=== PATIENT | male | born 1975 | race Hispanic/Latino ===

== ENCOUNTER 2017-09-04 20:40 | Inpatient (IN) | payer OTHER ==
[~2017-09-04] VITALS: Ht 170.2 cm; Wt 99.8 kg
[~2017-09-04 20:40] MED LIST: BENICAR HCT 401 EAC1 PO; PREDNISONE10 M2 PO; TESSALON PERLE100 M1 PO; VENTOLIN HFA18 GM INH; ZITHROMAX500 M2 PO
--- NOTE | 2017-09-04 20:47 | ED DYSPNEA/ASTHMA COMPLAINT ---
History of Present Illness General Chief Complaint: Wheezing/Asthma Stated Complaint: " BIBA PER EMS ASTHMA ATTACK" Source: patient, old records, EMS Exam Limitations: clinical condition Vital Signs & Intake/Output Vital Signs & Intake/Output Vital Signs Date Time Temp Pulse Resp B/P B/P Pulse O2 O2 Flow FiO2 Mean Ox Delivery Rate 09/05 0108 95 Nasal 2.0L Cannula 09/05 0050 98.8 103 20 154/90 96 Nasal 3.0L Cannula 09/04 2157 100.1 09/04 2155 100.1 09/04 2119 101.0 09/04 2108 101.0 120 20 154/88 96 Nasal 4.0L Cannula 09/04 2100 123 20 96 Nasal 4.0L Cannula 09/04 2049 97 CPAP 100% 09/04 2048 100.1 126 30 186/102 97 CPAP 100% ED Intake and Output 09/05 0000 09/04 1200 Intake Total Output Total 600 Balance -600 Output, Urine 600 Patient 220 lb Weight Weight Reported by Patient Measurement Method Allergies Coded Allergies: NO KNOWN ALLERGIES (06/21/17) Triage Nurses Notes Reviewed? yes Onset: Gradual Duration: worse persistent since (1 day) Timing: recent history Severity: severe Activities at Onset: none Prior Episodes/Possible Cause: occasional episodes Modifying Factors: Improves With: rest. Worsens With: movement. HPI: Patient is a 42-year-old male with history of asthma and hypertension presenting to the emergency department complaining of increasing shortness of breath, wheezing progressively getting worse 1 day. Patient does report upper respiratory congestion over the past several days. Has been using her home inhalers with some relief up until today. Denies fevers or chills. No chest pain. Positive shortness of breath. Shortness of breath is worse with talking and exertion. History of similar symptoms with asthma exacerbation in the past. (Fina CHAMBERS,Noemi) Reconcile Medications Albuterol Sulfate (Proair Hfa) 90 MCG HFA.AER.AD 2 PUF INH Q4-6 PRN PRN asthma (Reported) Olmesartan/Hydrochlorothiazide (Benicar Hct 40-25 MG Tablet) 40 MG-25 MG TABLET 1 TAB PO DAILY HEART (Reported) (Becki ZARAGOZA,Delroy) Past History Travel History Traveled to [place] past 21 day No Medical History Any Pertinent Medical History? see below for history Cardiovascular: hypertension Respiratory: asthma Surgical History Surgical History: non-contributory Psychosocial History What is your primary language Nepalese Family History Hx Contributory? No (Noemi Weir) Review of Systems Review of Systems Constitutional: Reports: see HPI. Comments Review of systems: See HPI, All other systems negative. Constitutional, no chills fever or weight loss HEENT: No visual changes no sore throat Cardiovascular: No chest pain ,palpitation , orthopnea or ankle swelling Skin, no jaundice no rashes Respiratory: No sputum or hemoptysis GI: No nausea no vomiting : No dysuria No hematuria Muscle skeletal: no back pain, no neck pain, Neurologic: No numbness no confusion no headache Psych: No stress anxiety or depression,. Heme/endocrine: No bruising no bleeding no polyuria or polydipsia Immunology: No splenectomy or history of AIDS (Noemi Weir) Physical Exam Physical Exam General Appearance: moderate distress Respiratory: wheezing Comments: Well-developed well-nourished person in moderate distress HEENT:. Pupils equally round and reactive to light and accommodation. Nose is atraumatic. External auditory canal and Tympanic membranes clear. Pharynx normal. No swelling or edema. Dry oral mucosa. Neck: Supple, no lymphadenopathy Cardiovascular: Tachycardic rate and rhythms no murmurs rubs or gallops, normal JVP Respiratory: Chest nontender. Increased work of breathing. Moderate respiratory distress.diffuse wheezing both inspiratory and expiratory to auscultation bilaterally Extremity: No edema, no calf tenderness to palpation, normal and equal pulses. Neuro: Alert oriented x3 Skin: No appreciable rash on exposed skin, skin is warm and dry. Psych: Mood and affect is normal, memory and judgment is normal. Core Measures ACS in differential dx? Yes CVA/TIA Diagnosis No Sepsis Present: No Sepsis Focused Exam Completed? No (Noemi Weir) Progress Differential Diagnosis: asthma, AMI, bronchitis, COPD, musculoskeletal pain, pneumonia, pneumothorax Plan of Care: Orders Procedure Date/time Status Regular Diet 09/05 B Active CBC WITHOUT DIFFERENTIAL 09/05 599 Active BASIC ELECTROLYTES PLUS BUN&CR 09/05 599 Active Vital Signs 09/05 144 Active Teach/Educate 09/05 144 Active Pain Treatment and Response 09/05 144 Active Nutritional Intake, Monitor 09/05 144 Active Isolation 01/21 0145 Active Intake & Output 09/05 0145 Active Patient Care Conference 09/05 0145 Active Activity/Ambulation 09/05 0145 Active LOWER RESPIRATORY CULTURE 09/05 0021 Active TRC EVALUATION (GEN) 09/05 UNK Active Isolation 09/05 UNK Active Pathway - chart 09/04 2348 Active STREP PNEUMO URINARY ANTIGEN 09/04 2347 Active LEGIONELLA URINARY ANTIGEN 09/04 2347 Active Pathway - chart 09/04 2346 Active Patient Data 09/04 2339 Active OXYGEN SETUP (GEN) 09/04 2331 Active Saline Lock 09/04 2331 Active Admit to inpatient 09/04 2331 Active Vital Signs 09/04 2331 Active Activity/Ambulation 09/04 2331 Active Code Status 09/04 2331 Active RAPID VIRAL INFLUENZA A 09/04 2114 Complete ARTERIAL BLOOD GAS (GEN) 09/04 2050 Complete Telemetry/Splicer Helper 09/04 204 Active TROPONIN LEVEL 09/04 204 Complete MAGNESIUM 09/04 204 Complete COMPREHENSIVE METABOLIC PANEL 09/04 204 Complete CBC WITHOUT DIFFERENTIAL 09/04 2045 Complete EKG 09/04 2046 Active Intake & Output 09/04 2044 Active TRC EVALUATION (GEN) 09/04 UNK Active PEAK FLOW MEASUREMENT (GEN) 09/04 UNK Active OXYGEN SETUP (GEN) 09/04 UNK Active House Staff 09/04 UNK Active VTE Mechanical Prophylaxis 09/04 UNK Active Current Medications Sig/Lorena Start time Last Medication Dose Stop Time Status Admin Enoxaparin Sodium 40 MG DAILY 09/05 1000 AC (Lovenox) Methylprednisolone 40 MG Q12 09/05 1000 AC (Solumedrol) Acetaminophen 1,000 MG Q6 09/05 0600 AC (Ofirmev) Albuterol Sulfate 2 PUF Q4-6 PRN PRN 09/05 0200 CANr (Ventolin) Sodium Chloride 1,000 ML Q13H 09/05 0145 UNVr (Normal Saline 0.9%) Oseltamivir Phosphate 30 MG BID 09/05 0129 UNVr (Tamiflu) 09/09 0128 Albuterol Sulfate 3 ML Q4H PRN 09/05 0115 UNVr 09/05 (Proventil) 0107 Non-Formulary 0 SEE ADMIN CRITERIA 09/05 0030 UNVr Medication (NON FORMULARY) Acetaminophen 650 MG Q6P PRN 09/04 2345 AC (Tylenol) Laboratory Tests 09/04/172214: pH 7.41, pCO2 44, pO2 70 L, HCO3 27, ABG O2 Sat (Measured) 92.0 L, Carboxyhemoglobin 1.2 L, O2 Concentration % 4L, O2 Delivery Method N/C, Phlebotomy Draw Site RIGHT RADIAL 09/04/172057: Anion Gap 15, Estimated GFR > 60, BUN/Creatinine Ratio 11.3, Glucose 149 H, Calcium 9.1, Magnesium 2.7 H, Total Bilirubin 0.4, AST 27, ALT 48, Alkaline Phosphatase 66, Troponin I < 0.01, Total Protein 7.4, Albumin 4.4, Globulin 3.0, Albumin/Globulin Ratio 1.5, CBC w Diff NO MAN DIFF REQ, RBC 4.90, MCV 83.4, MCH 26.4 L, RDW 15.0 H, MPV 8.0, Gran % 69.7, Lymphocytes % 14.6 L, Monocytes % 11.3 H, Eosinophils % 4.2, Basophils % 0.2, Absolute Granulocytes 6.1, Absolute Lymphocytes 1.3, Absolute Monocytes 1.0 H, Absolute Eosinophils 0.4, Absolute Basophils 0, PUBS MCHC 31.7 L Microbiology 09/05 002 LOWER RESP: Respiratory Culture - COLB 09/05 20 LOWER RESP: Gram Stain - COLB 09/04 2346 URINE ROUT: Legionella Antigen - ORD 09/04 2346 URINE ROUT: Streptococcus pneumoniae Antigen (M - ORD 09/04 2118 NASOPHARYN: Influenza Virus A & B Rapid Smear - COMP Patient was given IV Solu-Medrol, magnesium and epinephrine en route to the emergency department. Patient still has diffuse wheezing, oxygen saturation remains in the low to mid 90s on room air with increased work of breathing. Placed on nasal cannula for several 4. We will assess ABG, blood work, EKG and chest x-ray. Patient is febrile. We will obtain flu swab as well. 09/05/2017 12:06:12 AM patient was given terbutaline as well, still has ambulatory oxygen saturation of 89% on room air with increased work of breathing. Patient will be admitted for asthma exacerbation and hypoxia. Needing continuous nasal cannula oxygen. Diagnostic Imaging: Viewed by Me: Radiology Read. Discussed w/RAD: Radiology Read. Radiology Impression: PATIENT: DAVID HESTER PRESENT AGE: 42 PATIENT ACCOUNT NO: [id number] : 74 LOCATION: [facility] ORDERING PHYSICIAN: Noemi CHAMBERS SERVICE DATE: 09/04/17 EXAM TYPE: RAD - XRY-PORTABLE CHEST XRAY EXAMINATION: XR PORTABLE CHEST CLINICAL INFORMATION: Shortness of breath, wheeze COMPARISON: None TECHNIQUE: Portable AP view of the chest was obtained. FINDINGS: Hypoventilatory exam. This causes mild crowding of the pulmonary bronchovascular markings. No focal pulmonary consolidation is seen. No pleural effusion or pneumothorax. The cardiomediastinal silhouette is normal. IMPRESSION: Crowding of the pulmonary bronchovascular markings due to low lung volumes in this exam. No definite pulmonary opacity is seen. DICTATED BY: Willie Sands MD DATE/TIME DICTATED:09/04/172138 AQUATIC SCIENTIST: SINAN DATE/TIME TRANSCRIBED:09/04/172138 CONFIDENTIAL, DO NOT COPY WITHOUT APPROPRIATE AUTHORIZATION. <Electronically signed in Other Vendor System> SIGNED BY: Willie Sands MD 09/04/172143 Initial ED EKG: sinus tachy 120 bpm, non-specific t wav abnormalities. (Noemi Weir) Departure Departure Time of Disposition: 2326 Disposition: STILL A PATIENT Condition: Stable Clinical Impression Primary Impression: Asthma exacerbation Qualifiers: Asthma severity: moderate Asthma persistence: persistent Qualified Code: J45.41 - Moderate persistent asthma with (acute) exacerbation Secondary Impressions: Hypoxia Referrals: Quinten Kessler DO (PCP/Family) Departure Forms: Customer Survey General Discharge Information Admission Note Spoke With: Ellis Smith MD Documentation of Exam: Documentation of any treatments & extenuating circumstances including Concerns Regarding Discharge (functional status, medication knowledge or non-compliance, living conditions, etc.) that warrant an admission rather than observation: Patient requiring continuous oxygen which is new for this patient, pulmonology consultation, IV steroids, serial DuoNeb treatments, oxygen titration, discharge at this time would BE medically harmful. Serial blood gases. (Noemi Weir) PA/[employer] SPLICER Co-Sign Statement Statement: ED Attending supervision documentation- x I saw and evaluated the patient. I have also reviewed all the pertinent lab results and diagnostic results. I agree with the findings and the plan of care as documented in the PA's/FIBER [employer] SPLICER's documentation. Severe asthma exacerbation with increased work of breathing hypoxia [] I have reviewed the ED Record and agree with the PA's/FIBER OPTIC SPLICER's documentation. [] Additions or exceptions (if any) to the PAs/FIBER OPTIC SPLICER's note and plan are summarized below: [] (Becki ZARAGOZA,Delroy) Critical Care Note Critical Care Note Critical Care Time: 30-74 min (Fina CHAMBERS,Noemi)
[2017-09-04 21:10] LABS: ABSOLUTE BASOPHIL COUNT 0 /CUMM (0.0-0.2); ABSOLUTE EOSINOPHIL COUNT 0.4 /CUMM (0.0-0.7); ABSOLUTE GRANULOCYTE CT 6.1 /CUMM (1.4-6.5); ABSOLUTE LYMPH COUNT 1.3 /CUMM (1.2-3.4); BASOPHIL % 0.2 % (0.0-2.0); EOSINOPHIL % 4.2 % (0-5); GRANULOCYTE % 69.7 % (42.2-75.2); HEMATOCRIT 40.9 % (42-52); MEAN CORPUSCULAR HGB 26.4 PG (27.0-31.0); MEAN CORPUSCULAR HGB CONC 31.7 G/DL (33.0-37.0); MEAN CORPUSCULAR VOLUME 83.4 FL (80.0-94.0); PLATELET COUNT 204 /CUMM (130-400); WHITE BLOOD CELL COUNT 8.8 /CUMM (4.8-10.8)
--- NOTE | 2017-09-04 21:44 | RADIOLOGY REPORT ---
EXAMINATION: XR PORTABLE CHEST CLINICAL INFORMATION: Shortness of breath, wheeze COMPARISON: None TECHNIQUE: Portable AP view of the chest was obtained. FINDINGS: Hypoventilatory exam. This causes mild crowding of the pulmonary bronchovascular markings. No focal pulmonary consolidation is seen. No pleural effusion or pneumothorax. The cardiomediastinal silhouette is normal. IMPRESSION: Crowding of the pulmonary bronchovascular markings due to low lung volumes in this exam. No definite pulmonary opacity is seen.
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
[2017-09-05] VITALS (10 sets, daily range): BP systolic 120–184; BP diastolic 60–122
[2017-09-05] MEDS ORDERED: PROAIR HFA8.5 GM INH (01:54)
--- NOTE | 2017-09-05 03:06 | Admission Certification ---
Admission Certification Certification Statement - As attending physician, I certify that at the time of - admission, based on clinical presentation, severity of - symptoms, need for further diagnostic testing and - therapeutic interventions, and risk of adverse outcomes - without in-hospital treatment, in my clinical assessment, - this patient requires an acute hospital stay for a minimum - of two nights or longer. I have also considered psychsocial - factors such as support system, advanced age, financial - issues, cognitive issues, and failed out-patient treatments, - past re-admission history, safety of patient, and lack of - compliance as applicable. Specific rationale supporting this admission is: Asthma exacerbation
--- NOTE | 2017-09-05 10:04 | Event Note ---
Event Note Event Note: Dr. Hong psychiatrist called and she reviewed the home meds of the patient over the phone, she recommended to add CIWA score, Ativan 1 mg Q 4 PRN for CIAWA> 4 , to watch for Xanax withdrawal. We'll give Ativan , she said most likely he will be seen tomorrow
--- NOTE | 2017-09-05 10:13 | Incdntl Nt Psy ---
See Addendum Incidental Note Notation: Psychiatry consulted for patient presenting with asthma exacerbation in the context of history of PTSD, anxiety, depression. Consult question: His PTSD or anxiety contributing to asthma exacerbation and medication recommendations? Dr Miller for attending Dr Smith requested consult. Spoke with medical team promotions intern "Cristobal" pager [phone]. Case and chart briefly reviewed. It does not appear the patient is on any medications for anxiety or depression other than Xanax, which has been discontinued. Patient is currently being stabilized for asthma exacerbation but still is having breathing difficulty. A&P: 42-year-old male with history of PTSD, anxiety, depression presenting to ED with inpatient admission for asthma exacerbation. At this time would monitor for benzodiazepine withdrawal as asthma exacerbation is being stabilized, this may be contributing to anxiety/panic and shortness of breath. It does not appear the patient is on any other medications for psychiatric issues at this time. Would not start during acute exacerbation. -hold xanax as you are doing -vs/CIWA q4h with ativan 2 mg po/iv for CIWA >8 -for CIWA >15, consider ativan 1 mg IV/hr -would not start additional psych meds until full psych eval and medical stabilization -ativan 1 mg po q6h prn acute anxiety -plan discussed with promotions intern -Psych C/L team to see pt on Wednesday, please call with concerns
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
--- NOTE | 2017-09-05 13:58 | PN- Att Addend ---
Attending Addendum Attending Brief Note Patient seen/examined bedside. Patient c/o shortness of breath , b/l wheezing on bipap. Patient seen by pulmonary and recs followed. Patient received solumedrol this am. Accessory muscle use+. General Appearance: alert, awake, shortness of breath at rest, follows commands Head: atraumatic, normal appearance Eyes: Bilateral: normal appearance, PERRL. Neck: supple Respiratory: no respiratory distress, decreased breath sounds, wheezing+ diffuse. Cardiovascular: regular rate/rhythm Gastrointestinal: normal bowel sounds, soft, non-tender Extremities: no edema Skin: intact, normal color, warm/dry ASSESSMENT/PLAN Patient admitted to inpatient medical services for acute respiratroy failure with asthma exacerbation insetting of close contact to flu precipatating his flare up. Patient is on NIPPV for his respiratroy support. Pulmonary consulted and follow recommnedations. Patient uptitrate solumedrol from 40 q 12 to 40 q 6 with frequent bronchodilator therapy. Keep low threshold for intubation , candidate for elective intubation in case his mental status changes. CLOSELY FOLLOW and call me if any changes. Admission Lab Results I reviewed the following labs: Laboratory Tests 09/04 Blood Gas pH (7.35 - 7.45 PH) 7.41 pCO2 (35 - 45 TORR) 44 pO2 (80 - 100 TORR) 70 L HCO3 (21 - 28 MEQ/L) 27 ABG O2 Sat (Measured) (>96.0 %) 92.0 L Carboxyhemoglobin (1.5 - 5.0 %) 1.2 L O2 Concentration % 4L O2 Delivery Method N/C Chemistry Sodium (137 - 145 mmol/L) 142 Potassium (3.5 - 5.1 mmol/L) 3.8 Chloride (98 - 107 mmol/L) 97 L Carbon Dioxide (22 - 30 mmol/L) 30 Anion Gap (5 - 16) 15 BUN (9 - 20 mg/dL) 9 Creatinine (0.7 - 1.2 mg/dL) 0.8 Estimated GFR (>60 ml/min) > 60 BUN/Creatinine Ratio (7 - 25 %) 11.3 Glucose (65 - 99 mg/dL) 149 H Calcium (8.4 - 10.2 mg/dL) 9.1 Magnesium (1.6 - 2.3 mg/dL) 2.7 H Total Bilirubin (0.2 - 1.3 mg/dL) 0.4 AST (17 - 59 U/L) 27 ALT (21 - 72 U/L) 48 Alkaline Phosphatase (< 127 U/L) 66 Troponin I (<0.11 ng/ml) < 0.01 Total Protein (6.3 - 8.2 g/dL) 7.4 Albumin (3.5 - 5.0 g/dL) 4.4 Globulin (1.9 - 4.2 gm/dL) 3.0 Albumin/Globulin Ratio (1.1 - 2.2 %) 1.5 Hematology CBC w Diff NO MAN DIFF REQ WBC (4.8 - 10.8 /CUMM) 8.8 RBC (4.70 - 6.10 /CUMM) 4.90 Hgb (14.0 - 18.0 G/DL) 13.0 L Hct (42 - 52 %) 40.9 L MCV (80.0 - 94.0 FL) 83.4 MCH (27.0 - 31.0 PG) 26.4 L RDW (11.5 - 14.5 %) 15.0 H Plt Count (130 - 400 /CUMM) 204 MPV (7.4 - 10.4 FL) 8.0 Gran % (42.2 - 75.2 %) 69.7 Lymphocytes % (20.5 - 51.1 %) 14.6 L Monocytes % (1.7 - 9.3 %) 11.3 H Eosinophils % (0 - 5 %) 4.2 Basophils % (0.0 - 2.0 %) 0.2 Absolute Granulocytes (1.4 - 6.5 /CUMM) 6.1 Absolute Lymphocytes (1.2 - 3.4 /CUMM) 1.3 Absolute Monocytes (0.10 - 0.60 /CUMM) 1.0 H Absolute Eosinophils (0.0 - 0.7 /CUMM) 0.4 Absolute Basophils (0.0 - 0.2 /CUMM) 0 PUBS MCHC (33.0 - 37.0 G/DL) 31.7 L Miscellaneous Phlebotomy Draw Site RIGHT RADIAL
[2017-09-05 15:50] LABS: ABSOLUTE BASOPHIL COUNT 0 /CUMM (0.0-0.2); ABSOLUTE EOSINOPHIL COUNT 0 /CUMM (0.0-0.7); ABSOLUTE LYMPH COUNT 0.5 /CUMM (1.2-3.4); ABSOLUTE MONOCYTE COUNT 0.2 /CUMM (0.10-0.60); BASOPHIL % 0 % (0.0-2.0); EOSINOPHIL % 0 % (0-5); GRANULOCYTE % 94.9 % (42.2-75.2); MEAN CORPUSCULAR HGB 26.9 PG (27.0-31.0); MEAN CORPUSCULAR HGB CONC 32.6 G/DL (33.0-37.0); MEAN CORPUSCULAR VOLUME 82.4 FL (80.0-94.0); MEAN PLATELET VOLUME 8.7 FL (7.4-10.4); PLATELET COUNT 201 /CUMM (130-400); RBC DISTRIBUTION WIDTH 15.4 % (11.5-14.5); RED BLOOD CELL CT 5.09 /CUMM (4.70-6.10)
[2017-09-05 15:57] LABS: WHITE BLOOD CELL COUNT 13.7 /CUMM (4.8-10.8)
--- NOTE | 2017-09-05 23:16 | Event Note ---
Event Note Event Note: Patient reports taking 100 mg of methadone from [facility], says he recently started because of pain medication abuse - We will Confirm the dose in the a.m. and start pt on methadone -Patient wants to [facility] to know that he is being treated for asthma exacerbation and cannot make it for his appointments
[2017-09-06] VITALS (12 sets, daily range): BP systolic 110–124; BP diastolic 58–86
--- NOTE | 2017-09-06 07:51 | PN- Housestaff ---
Subjective Follow-up For: Asthma exacerbation Subjective: Patient was seen and examined this morning. He was sitting comfortably in bed without significant discomfort. He admits that he is doing way better than before. He remained afebrile and hemodynamically stable. He is able to speak in full sentences. He is requesting for his methadone which we would conform and will provide Review of Systems Constitutional: Denies: diaphoresis, fever, malaise. Cardiovascular: Denies: chest pain, edema. Respiratory: Reports: short of breath, wheezing. Gastrointestinal: Denies: constipation, melena. Genitourinary: Denies: frequency, hematuria. Objective Last 24 Hrs of Vital Signs/I&O Vital Signs Date Time Temp Pulse Resp B/P B/P Pulse O2 O2 Flow FiO2 Mean Ox Delivery Rate 09/06 1115 98.2 09/06 0951 97.0 86 20 112/60 09/06 0938 96 Nasal 1.0L Cannula 09/06 0648 97.0 86 20 112/60 96 BIPAP 09/06 0610 89 98 09/06 0503 92 98 09/06 0249 99 BIPAP 30% 09/06 0225 93 99 09/06 0200 97.0 91 20 120/84 99 BIPAP 09/06 0000 BIPAP 40% 09/05 2221 98 99 09/05 2200 97.3 96 20 120/60 98 BIPAP 09/05 1836 98 BIPAP 40% 09/05 1831 98 98 09/05 1600 BIPAP 40% 09/05 1519 130/70 09/05 1435 97.5 97 20 95 BIPAP Intake & Output 09/06 1600 09/06 0800 09/06 0000 Intake Total 350 400 Output Total Balance 350 400 Intake, IV 250 300 Intake, Oral 100 100 Physical Exam General Appearance: Alert, Oriented X3, Cooperative, No Acute Distress Cardiovascular: Regular Rate, Normal S1, Normal S2, No Murmurs Lungs: bl wheezing Abdomen: Soft, No Tenderness Current Medications: Current Medications Sig/Lorena Start time Last Medication Dose Route Stop Time Status Admin Acetaminophen 1,000 MG Q6 09/05 0600 AC 09/06 IV 1115 Acetaminophen 650 MG Q6P PRN 09/04 2345 AC 09/05 PO 0228 Al Hydroxide/Mg 30 ML Q4-6 PRN PRN 09/06 1045 AC Hydroxide PO Albuterol Sulfate 3 ML Q4 09/05 1400 AC 09/06 INH 1305 Albuterol Sulfate 2 PUF Q4-6 PRN PRN 09/05 0645 AC 09/05 INH 0944 Azithromycin 500 MG DAILY@09/06 AC Dextrose/Water 250 ML IV Azithromycin 500 MG DAILY@09/05 1900 DC 09/05 Sodium Chloride 250 ML IV 202 Enoxaparin Sodium 40 MG DAILY 09/05 1000 AC 09/06 SC 0950 Guaifenesin 600 MG Q12 09/05 1000 AC 09/06 PO 0951 Hydrochlorothiazide 25 MG DAILY 09/05 1000 AC 09/06 PO 0951 Ipratropium [place] 2.5 ML Q4 09/05 1400 AC 09/06 INH 1305 Lorazepam 1 MG Q4P PRN 09/05 1015 AC IV Losartan Potassium 100 MG DAILY 09/05 1000 AC 09/06 PO 0951 Melatonin 5 MG AT BEDTIME 09/06 2199 AC PO Melatonin 5 MG ONCE ONE 09/05 2114 DC 09/05 PO 09/05 Methadone HCl 100 MG DAILY 09/06 1015 AC 09/06 PO 1115 Methylprednisolone 40 MG Q8 09/06 1400 AC IV Methylprednisolone 40 MG Q6 09/05 1200 DC 09/06 IV 0611 Montelukast Sodium 10 MG AT BEDTIME 09/05 2200 AC 09/05 PO 2127 Oseltamivir Phosphate 75 MG BID 09/05 0156 AC 09/06 PO 09/09 0155 0950 Oxymetazoline HCl 2 SPRAY BID 09/05 0400 AC 09/06 SHAKA 0953 Last 24 Hrs of Lab/Nate Results Last 24 Hrs of Labs/Mics: Laboratory Tests 09/06/17 0815: Anion Gap 15, Estimated GFR > 60, BUN/Creatinine Ratio 25.6 H, Hemoglobin A1c 7.1 H, Phosphorus 4.3, Magnesium 2.0, Triglycerides 98, Cholesterol 163, LDL Cholesterol, Calc 97, HDL Cholesterol 47, Cholesterol/HDL Ratio 4, CBC w Diff MAN DIFF ORDERED, RBC 5.02, MCV 82.8, MCH 27.0, RDW 15.3 H, MPV 8.8, Gran % 94.3 H, Lymphocytes % 3.0 L, Monocytes % 2.7, Eosinophils % 0, Basophils % 0, Absolute Granulocytes 18.9 H, Segmented Neutrophils 85 H, Band Neutrophils 9 H, Absolute Lymphocytes 0.6 L, Lymphocytes 1 L, Monocytes 5, Absolute Monocytes 0.5, Absolute Eosinophils 0, Absolute Basophils 0, Platelet Estimate VERIFIED BY SMEAR, Anisocytosis 1+, PUBS MCHC 32.6 L, RPR Titer/FTA Pending 09/05/17 1455: Anion Gap 13, Estimated GFR > 60, BUN/Creatinine Ratio 16.3, Vitamin B12 386, TSH 0.258 L, Free T4 1.01, CBC w Diff MAN DIFF ORDERED, RBC 5.09, MCV 82.4, MCH 26.9 L, RDW 15.4 H, MPV 8.7, Gran % 94.9 H, Lymphocytes % 3.5 L, Monocytes % 1.6 L, Eosinophils % 0, Basophils % 0, Absolute Granulocytes 13.0 H, Segmented Neutrophils 84 H, Band Neutrophils 12 H, Absolute Lymphocytes 0.5 L, Lymphocytes 3 L, Monocytes 1 L, Absolute Monocytes 0.2, Absolute Eosinophils 0 , Absolute Basophils 0, Platelet Estimate ADEQUATE, Normochromic RBCs VERIFIED, PUBS MCHC 32.6 L Microbiology 09/06 120 LOWER RESP: Respiratory Culture - RECD 09/06 1208 LOWER RESP: Gram Stain - RECD Assessment/Plan Assessment: Patient is 42-year-old gentleman with past medical history significant for asthma, PTSD and hypertension came in with chief complaint of worsening shortness of breath most likely due to asthma axis are patient and admitted on general medical floor. During his hospital stay we will take care for the following problems. Problem #1 asthma exacerbation We will continue azithromycin for its anti-inflammatory benefits. We will decrease his IV Solu-Medrol from 40 every 6 240 daily 8 today. We will continue total respiratory care and nebulizations. We would continue supplemental oxygen to keep oxygen saturation more than 90%. Pulmonology is on board and we will follow their recommendations. Problem #2 influenza exposure on Tamiflu. Patient admits that her girlfriend is recently been treated for flu and was started on Tamiflu during his hospital stay and we will continue to complete a course of 5 days. Problem #3 history of PTSD and excite the Patient is on when necessary Ativan for anxiety. Psych is on board. We will continue his methadone for his chronic pain. I called [facility] and confirmed his dose of 100 mg methadone daily. Problem #4 history of hypertension We will continue all his home medications. Problem #5 elevated hemoglobin A1c Patient was never been diagnosed with diabetes as outpatient. Patient will be instructed to follow-up with his PCP to start on oral hypoglycemics if needed. Problem List: 1. Asthma exacerbation Pain Ratin Pain Location: Not applicable Pain Goal: Remain pain free Pain Plan: Tylenol Tomorrow's Labs & Rationales: Cbc and basic electrolyte panel
--- NOTE | 2017-09-06 08:29 | PN- Pulmonary ---
Subjective HPI/Critical Care Issues: Patient is comfortable on BiPAP. Oxygen saturations improved. Quick flu was negative Objective Current Medications: Current Medications Sig/Lorena Start time Last Medication Dose Route Stop Time Status Admin Acetaminophen 1,000 MG Q6 09/05 0600 AC 09/06 IV 0610 Acetaminophen 650 MG Q6P PRN 09/04 2345 AC 09/05 PO 0228 Albuterol Sulfate 3 ML Q4 09/05 1400 AC 09/06 INH 0552 Albuterol Sulfate 2 PUF Q4-6 PRN PRN 09/05 0645 AC 09/05 INH 0944 Albuterol Sulfate 3 ML Q4H PRN 09/05 0115 DC 09/05 INH 0704 Azithromycin 500 MG DAILY@1900 09/05 1900 AC 09/05 Sodium Chloride 250 ML IV 202 Enoxaparin Sodium 40 MG DAILY 09/05 1000 AC 09/05 SC 0949 Guaifenesin 600 MG Q12 09/05 1000 AC 09/05 PO 2127 Hydrochlorothiazide 25 MG DAILY 09/05 1000 AC 09/05 PO 0946 Influenza Virus 0.5 ML ONCE ONE 09/05 1000 DC Vaccine IM 09/05 1001 Ipratropium [place] 2.5 ML Q4 09/05 1400 AC 09/06 INH 0552 Lorazepam 1 MG Q4P PRN 09/05 1015 AC IV Losartan Potassium 100 MG DAILY 09/05 1000 AC 09/05 PO 0350 Melatonin 5 MG ONCE ONE 09/05 2115 DC 09/05 PO 09/05 Methylprednisolone 40 MG Q6 09/05 1200 AC 09/06 IV 0611 Methylprednisolone 40 MG Q12 09/05 1000 DC 09/05 IV 0946 Montelukast Sodium 10 MG AT BEDTIME 09/05 2200 AC 09/05 PO 2127 Ondansetron HCl 4 MG ONCE ONE 09/05 1015 DC 09/05 IV 09/05 1016 1025 Oseltamivir Phosphate 75 MG BID 09/05 0156 AC 09/05 PO 09/09 0155 212 Oxymetazoline HCl 2 SPRAY BID 09/05 0400 AC 09/05 SHAKA 2021 Vital Signs & I&O Last 24 Hrs of Vitals and I&O: Vital Signs Date Time Temp Pulse Resp B/P B/P Pulse O2 O2 Flow FiO2 Mean Ox Delivery Rate 09/06 0648 97.0 86 20 112/60 96 BIPAP 09/06 0610 89 98 01/22 0503 92 98 09/06 0249 99 BIPAP 30% 09/06 0225 93 99 09/06 0200 97.0 91 20 120/84 99 BIPAP 09/06 0000 BIPAP 40% 09/05 2221 98 99 09/05 2200 97.3 96 20 120/60 98 BIPAP 09/05 1836 98 BIPAP 40% 09/05 1831 98 98 09/05 1600 BIPAP 40% 09/05 1519 130/70 09/05 1435 97.5 97 20 95 BIPAP 09/05 1354 92 98 09/05 1130 96 16 150/98 98 BIPAP 40% 09/05 1039 BIPAP 40% 09/05 1032 95 98 Intake & Output 09/06 1600 09/06 0800 09/06 0000 Intake Total 350 400 Output Total Balance 350 400 Intake, IV 250 300 Intake, Oral 100 100 Oxygen saturation 30% 9698% exam his chest shows scattered bilateral wheezing and rhonchi cardiac exam shows regular S1 and S2 without murmurs Impression/Plan Impression/Plan Impression/Plan: 42-year-old with acute hypoxic respiratory failure and acute exacerbation of asthma is slowly improving Recommendations: Trial off BiPAP Taper FiO2 saturations allow continue IV Solu-Medrol and Zithromax. Repeat PA and lateral chest x-ray
[2017-09-06 10:29] LABS: ABSOLUTE BASOPHIL COUNT 0 /CUMM (0.0-0.2); ABSOLUTE EOSINOPHIL COUNT 0 /CUMM (0.0-0.7); ABSOLUTE GRANULOCYTE CT 18.9 /CUMM (1.4-6.5); ABSOLUTE LYMPH COUNT 0.6 /CUMM (1.2-3.4); ABSOLUTE MONOCYTE COUNT 0.5 /CUMM (0.10-0.60); BASOPHIL % 0 % (0.0-2.0); EOSINOPHIL % 0 % (0-5); GRANULOCYTE % 94.3 % (42.2-75.2); HEMATOCRIT 41.6 % (42-52); MEAN CORPUSCULAR HGB CONC 32.6 G/DL (33.0-37.0); MEAN CORPUSCULAR VOLUME 82.8 FL (80.0-94.0); MEAN PLATELET VOLUME 8.8 FL (7.4-10.4); PLATELET COUNT 216 /CUMM (130-400); RBC DISTRIBUTION WIDTH 15.3 % (11.5-14.5); RED BLOOD CELL CT 5.02 /CUMM (4.70-6.10)
--- NOTE | 2017-09-06 11:36 | PN- Att Addend ---
Attending Addendum Attending Brief Note Patient seen and examined, claims that overall his breathing has improved some. He is having difficulty sleeping at night and wants to sleep. Also complaining of some heartburn. Vital Signs Date Time Temp Pulse Resp B/P B/P Pulse O2 O2 Flow FiO2 Mean Ox Delivery Rate 09/06 1115 98.2 09/06 0951 97.0 86 20 112/60 09/06 0938 96 Nasal 1.0L Cannula 09/06 0648 97.0 86 20 112/60 96 BIPAP 09/06 0610 89 98 09/06 0503 92 98 09/06 0249 99 BIPAP 30% 09/06 0225 93 99 09/06 0200 97.0 91 20 120/84 99 BIPAP 09/06 0000 BIPAP 40% 09/05 2221 98 99 09/05 2200 97.3 96 20 120/60 98 BIPAP 09/05 1836 98 BIPAP 40% 09/05 1831 98 98 09/05 1600 BIPAP 40% 09/05 1519 130/70 09/05 1435 97.5 97 20 95 BIPAP 09/05 1354 92 98 on exam; aox3,nad. cv; s1,s2, rrr resp; mild scattered wheeze b/l abd; soft, nt,bs+ ext; no edema. Laboratory Tests 09/06 09/05 0815 1455 Chemistry Sodium (137 - 145 mmol/L) 137 137 Potassium (3.5 - 5.1 mmol/L) 4.4 4.3 Chloride (98 - 107 mmol/L) 94 L 96 L Carbon Dioxide (22 - 30 mmol/L) 28 29 Anion Gap (5 - 16) 15 13 BUN (9 - 20 mg/dL) 23 H 13 Creatinine (0.7 - 1.2 mg/dL) 0.9 0.8 Estimated GFR (>60 ml/min) > 60 > 60 BUN/Creatinine Ratio (7 - 25 %) 25.6 H 16.3 Hemoglobin A1c (4.2 - 5.8 %) 7.1 H Phosphorus (2.5 - 4.5 mg/dL) 4.3 Magnesium (1.6 - 2.3 mg/dL) 2.0 Triglycerides (<150 mg/dL) 98 Cholesterol (< 200 MG/DL) 163 LDL Cholesterol, Calc (65 - 129 mg/dL) 97 HDL Cholesterol (40 - 60 mg/dL) 47 Cholesterol/HDL Ratio (0.00 - 4.88 %) 4 Vitamin B12 (239 - 931 pg/mL) 386 TSH (0.270 - 4.200 uIU/mL) 0.258 L Free T4 (0.64 - 1.79 ng/dL) 1.01 Hematology CBC w Diff Pending MAN DIFF ORDERED WBC (4.8 - 10.8 /CUMM) Pending 13.7 H RBC (4.70 - 6.10 /CUMM) Pending 5.09 Hgb (14.0 - 18.0 G/DL) Pending 13.7 L Hct (42 - 52 %) Pending 42.0 MCV (80.0 - 94.0 FL) Pending 82.4 MCH (27.0 - 31.0 PG) Pending 26.9 L RDW (11.5 - 14.5 %) Pending 15.4 H Plt Count (130 - 400 /CUMM) Pending 201 MPV (7.4 - 10.4 FL) Pending 8.7 Gran % (42.2 - 75.2 %) Pending 94.9 H Lymphocytes % (20.5 - 51.1 %) Pending 3.5 L Monocytes % (1.7 - 9.3 %) Pending 1.6 L Eosinophils % (0 - 5 %) Pending 0 Basophils % (0.0 - 2.0 %) Pending 0 Absolute Granulocytes (1.4 - 6.5 /CUMM) Pending 13.0 H Segmented Neutrophils (42.2 - 75.2 %) 84 H Band Neutrophils (0.0 - 5.0 %) 12 H Absolute Lymphocytes (1.2 - 3.4 /CUMM) Pending 0.5 L Lymphocytes (20.5 - 51.1 %) 3 L Monocytes (1.7 - 9.3 %) 1 L Absolute Monocytes (0.10 - 0.60 /CUMM) Pending 0.2 Absolute Eosinophils (0.0 - 0.7 /CUMM) Pending 0 Absolute Basophils (0.0 - 0.2 /CUMM) Pending 0 Platelet Estimate (ADEQUATE) ADEQUATE Normochromic RBCs VERIFIED PUBS MCHC (33.0 - 37.0 G/DL) Pending 32.6 L Serology RPR Titer/FTA Pending A/P; 42-year-old male with past history significant for hypertension, asthma, anxiety, depression admitted with acute hypoxic respiratory failure secondary to acute asthma exacerbation. Patient did have a close contact to influenza positive patient who is his girlfriend. Will taper the steroids to every 8 hours today. Continue azithromycin as well as Tamiflu. Continue TRC nebs. Will add melatonin. Will add Maalox for his heartburn. Continue the rest of his medications. Patient was encouraged to ambulate. We confirmed the dose of his methadone through [facility], will resume it. DVT px; Lovenox.
--- NOTE | 2017-09-06 15:27 | RADIOLOGY REPORT ---
EXAMINATION: CR CHEST CLINICAL INFORMATION: Shortness of breath. Pulmonary infiltrate. COMPARISON: Chest x-ray dated 09/04/2017. TECHNIQUE: 2 views of the chest were obtained. FINDINGS: The cardiomediastinal silhouette is within normal limits in size. Low lung volumes are seen. No focal consolidation, effusion or pneumothorax is seen. Bony structures are unremarkable. IMPRESSION: No acute cardiopulmonary process seen.
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
[2017-09-07] VITALS (10 sets, daily range): BP systolic 110–120; BP diastolic 64–80
--- NOTE | 2017-09-07 08:13 | PN- Housestaff ---
Sara Sethi 09/07/17 0812: Subjective Follow-up For: Asthma exacerbation Subjective: The patient was seen and examined this morning. He was lying comfortably in bed and his respiratory status is better. He is able to talk in full sentences. He remained afebrile and hemodynamically stable. Patient is requesting to be discharged home today. Review of Systems Constitutional: Denies: diaphoresis, fever, malaise. Cardiovascular: Denies: chest pain, edema. Respiratory: Reports: short of breath, wheezing. Gastrointestinal: Denies: bloating, diarrhea. Genitourinary: Denies: discharge, hematuria. Musculoskeletal: Denies: gout, joint swelling. Objective Last 24 Hrs of Vital Signs/I&O Vital Signs Date Time Temp Pulse Resp B/P B/P Pulse O2 O2 Flow FiO2 Mean Ox Delivery Rate 09/07 1400 98.4 75 20 118/64 09/07 1356 98.6 70 20 110/70 97 Room Air 09/07 1200 98.4 75 20 118/64 09/07 1000 98.4 75 20 118/64 09/07 0850 98.4 75 18 118/64 09/07 0830 95 Room Air 09/07 0800 98.4 75 20 118/64 09/07 0800 93 09/07 0618 98.4 75 18 118/64 92 Room Air 09/07 0600 98.4 75 18 118/64 09/07 0400 98.1 84 20 120/80 09/07 0314 93 Room Air 09/07 0200 98.1 84 20 120/80 09/07 0000 BIPAP 09/07 0000 98.1 84 20 120/80 09/06 2336 98.1 84 20 120/80 94 Nasal Cannula 09/06 2200 98.3 84 20 120/80 09/06 2000 98.0 82 18 120/80 09/06 1800 98.2 86 18 122/86 09/06 1800 97.0 82 16 110/62 Intake & Output 09/07 1600 09/07 0800 09/07 0000 Intake Total 350 800 600 Output Total Balance 350 800 600 Intake, IV 200 200 Intake, Oral 350 600 400 Physical Exam General Appearance: Alert, Oriented X3, Cooperative, No Acute Distress Cardiovascular: Regular Rate, Normal S1, Normal S2, No Murmurs Lungs: bilateral expiratory wheezing Abdomen: Soft, No Tenderness, No Hepatospenomegaly Neurological: Normal Speech, Strength at 5/5 X4 Ext, Normal Tone Extremities: No Clubbing, No Cyanosis, No Edema Current Medications: Current Medications Sig/Lorena Start time Last Medication Dose Route Stop Time Status Admin Acetaminophen 1,000 MG Q6 09/05 0600 DCD 09/07 IV 0513 Acetaminophen 650 MG Q6P PRN 09/04 2345 DCD 09/05 PO 0228 Al Hydroxide/Mg 30 ML Q4-6 PRN PRN 09/06 1045 DCD Hydroxide PO Albuterol Sulfate 3 ML Q4 09/05 1400 DCD 09/07 INH 1205 Albuterol Sulfate 2 PUF Q4-6 PRN PRN 09/05 0645 DCD 09/05 INH 0944 Azithromycin 500 MG DAILY@1900 09/06 1900 DCD 09/06 Dextrose/Water 250 ML IV 2045 Enoxaparin Sodium 40 MG DAILY 09/05 1000 DCD 09/07 SC 0850 Gabapentin 100 MG Q8 09/06 2200 DCD 09/07 PO 1405 Guaifenesin 600 MG Q12 09/05 1000 DCD 09/07 PO 0849 Hydrochlorothiazide 25 MG DAILY 09/05 1000 DCD 09/07 PO 0851 Ipratropium [place] 2.5 ML Q4 09/05 1400 DCD 09/07 INH 1206 Lorazepam 1 MG Q4P PRN 09/05 1015 DCD 09/06 IV 2223 Losartan Potassium 100 MG DAILY 09/05 1000 DCD 09/07 PO 0850 Melatonin 5 MG AT BEDTIME 09/06 2200 DCD 09/06 PO 2224 Methadone HCl 100 MG DAILY 09/06 1015 DCD 09/07 PO 0850 Methylprednisolone 40 MG Q8 09/06 1400 DCD 09/07 IV 1405 Montelukast Sodium 10 MG AT BEDTIME 09/05 2200 DCD 09/06 PO 2224 Oseltamivir Phosphate 75 MG BID 09/05 0156 DCD 09/07 PO 09/09 0155 0850 Oxymetazoline HCl 2 SPRAY BID 09/05 0400 DCD 09/07 SHAKA 0852 Trazodone HCl 50 MG AT BEDTIME NEED.. 09/06 2030 DCD 09/06 PO 2225 Last 24 Hrs of Lab/Nate Results Last 24 Hrs of Labs/Mics: Laboratory Tests 09/07/17 0800: Anion Gap 13, Estimated GFR > 60, BUN/Creatinine Ratio 30.0 H, CBC w Diff NO MAN DIFF REQ, RBC 4.76, MCV 83.1, MCH 27.0, RDW 15.2 H, MPV 8.7, Gran % 92.7 H , Lymphocytes % 4.4 L, Monocytes % 2.9, Eosinophils % 0, Basophils % 0, Absolute Granulocytes 17.1 H, Absolute Lymphocytes 0.8 L, Absolute Monocytes 0.5, Absolute Eosinophils 0, Absolute Basophils 0, PUBS MCHC 32.5 L Assessment/Plan Assessment: Patient is 42-year-old gentleman with past medical history significant for asthma, PTSD and hypertension came in with chief complaint of worsening shortness of breath most likely due to asthma axis are patient and admitted on general medical floor. During his hospital stay we will take care for the following problems. Problem #1 asthma exacerbation We will continue azithromycin for its anti-inflammatory benefits. Patient is stable to go home today as he saturating fine on room air. We will send him home on oral azithromycin and tapering course of prednisone and inhalers. 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 He was started on Singulair during this admission and we will discharge him on the same. Problem #2 influenza exposure on Tamiflu. Patient admits that her girlfriend is recently been treated for flu and was started on Tamiflu during his hospital stay and we will continue to complete a course of 5 days. Problem #3 history of PTSD and excite the Patient is on when necessary Ativan for anxiety. Psych is on board. We will continue his methadone for his chronic pain. I called [facility] and confirmed his dose of 100 mg methadone daily. Patient was evaluated by psych during this admission and Davion leon from psychiatry would contact him tomorrow to schedule for outpatient psych intake. Problem #4 history of hypertension We will continue all his home medications. Problem #5 elevated hemoglobin A1c Patient was never been diagnosed with diabetes as outpatient. Patient will be instructed to follow-up with his PCP to start on oral hypoglycemics if needed. Problem List: 1. Asthma exacerbation Pain Ratin Pain Location: Not applicable Pain Goal: Remain pain free Pain Plan: Tylenol Tomorrow's Labs & Rationales: None Brooke Yip MD 09/07/17 1106: Attending MD Review Statement Attending Statement Attending MD Statement: examined this patient, discuss w/resident/PA/MEDICAL RECEPTION, agreed w/resident/PA/MEDICAL RECEPTION, reviewed EMR data (avail), discussed with nursing, discussed with case mgmt, reviewed images, amended to note Attending Assessment/Plan: Patient seen and examined, overall doing better. Breathing has improved. Not requiring any oxygen. White blood cell count has improved compared to yesterday. vss. on exam; aox3, nad. cv; s1,s2, rrr resp; much better, now clear b/l abd; soft, nt, bs+ ext; no edema Laboratory Tests 09/07 0800 Chemistry Sodium (137 - 145 mmol/L) 135 L Potassium (3.5 - 5.1 mmol/L) 4.6 Chloride (98 - 107 mmol/L) 95 L Carbon Dioxide (22 - 30 mmol/L) 27 Anion Gap (5 - 16) 13 BUN (9 - 20 mg/dL) 27 H Creatinine (0.7 - 1.2 mg/dL) 0.9 Estimated GFR (>60 ml/min) > 60 BUN/Creatinine Ratio (7 - 25 %) 30.0 H Hematology CBC w Diff NO MAN DIFF REQ WBC (4.8 - 10.8 /CUMM) 18.4 H RBC (4.70 - 6.10 /CUMM) 4.76 Hgb (14.0 - 18.0 G/DL) 12.9 L Hct (42 - 52 %) 39.6 L MCV (80.0 - 94.0 FL) 83.1 MCH (27.0 - 31.0 PG) 27.0 RDW (11.5 - 14.5 %) 15.2 H Plt Count (130 - 400 /CUMM) 204 MPV (7.4 - 10.4 FL) 8.7 Gran % (42.2 - 75.2 %) 92.7 H Lymphocytes % (20.5 - 51.1 %) 4.4 L Monocytes % (1.7 - 9.3 %) 2.9 Eosinophils % (0 - 5 %) 0 Basophils % (0.0 - 2.0 %) 0 Absolute Granulocytes (1.4 - 6.5 /CUMM) 17.1 H Absolute Lymphocytes (1.2 - 3.4 /CUMM) 0.8 L Absolute Monocytes (0.10 - 0.60 /CUMM) 0.5 Absolute Eosinophils (0.0 - 0.7 /CUMM) 0 Absolute Basophils (0.0 - 0.2 /CUMM) 0 PUBS MCHC (33.0 - 37.0 G/DL) 32.5 L A/P; 42-year-old male with past history significant for hypertension, asthma, anxiety, depression admitted with acute hypoxic respiratory failure secondary to acute asthma exacerbation and getting empiric treatment for influenza due to having close contact influenza positive patient. Will complete total of 5 days of Azithro, Tamiflu and will start prednisone taper. Patient also needs prescription for inhalers. Otherwise doing well and stable for SC home today.
--- NOTE | 2017-09-07 08:41 | PN- Pulmonary ---
Subjective HPI/Critical Care Issues: Patient is comfortable and anxious to go home is now required BiPAP room air oxygen saturation is 92% Objective Current Medications: Current Medications Sig/Lorena Start time Last Medication Dose Route Stop Time Status Admin Acetaminophen 1,000 MG Q6 09/05 0600 AC 09/07 IV 0513 Acetaminophen 650 MG Q6P PRN 09/04 2345 AC 09/05 PO 0228 Al Hydroxide/Mg 30 ML Q4-6 PRN PRN 09/06 1045 AC Hydroxide PO Albuterol Sulfate 3 ML Q4 09/05 1400 AC 09/07 INH 0828 Albuterol Sulfate 2 PUF Q4-6 PRN PRN 09/05 0645 AC 09/05 INH 0944 Azithromycin 500 MG DAILY@09/06 1900 AC 09/06 Dextrose/Water 250 ML IV 2045 Azithromycin 500 MG DAILY@09/05 1900 DC 09/05 Sodium Chloride 250 ML IV 2020 Enoxaparin Sodium 40 MG DAILY 09/05 1000 AC 09/06 SC 0950 Gabapentin 100 MG Q8 09/06 2200 AC 09/07 PO 0513 Guaifenesin 600 MG Q12 09/05 1000 AC 09/06 PO 2224 Hydrochlorothiazide 25 MG DAILY 09/05 1000 AC 09/06 PO 0951 Ipratropium [place] 2.5 ML Q4 09/05 1400 AC 09/07 INH 0828 Lorazepam 1 MG Q4P PRN 09/05 1015 09/06 IV 2223 Losartan Potassium 100 MG DAILY 09/05 1000 AC 09/06 PO 0951 Melatonin 5 MG AT BEDTIME 09/06 2200 09/06 PO 2224 Methadone HCl 100 MG DAILY 09/06 1015 09/06 PO 1115 Methylprednisolone 40 MG Q8 09/06 1400 AC 09/07 IV 0513 Methylprednisolone 40 MG Q6 09/05 1200 DC 09/06 IV 0611 Montelukast Sodium 10 MG AT BEDTIME 09/05 2200 AC 09/06 PO 2224 Oseltamivir Phosphate 75 MG BID 09/05 0156 AC 09/06 PO 09/09 0155 2224 Oxymetazoline HCl 2 SPRAY BID 09/05 0400 09/06 SHAKA 2225 Trazodone HCl 50 MG AT BEDTIME NEED.. 09/06 2030 AC 09/06 PO 2225 Vital Signs & I&O Last 24 Hrs of Vitals and I&O: Vital Signs Date Time Temp Pulse Resp B/P B/P Pulse O2 O2 Flow FiO2 Mean Ox Delivery Rate 09/07 0618 98.4 75 18 118/64 92 Room Air 09/07 0600 98.4 75 18 118/64 09/07 0400 98.1 84 20 120/80 09/07 0314 93 Room Air 09/07 0200 98.1 84 20 120/80 09/07 0000 BIPAP 09/07 0000 98.1 84 20 120/80 09/06 2336 98.1 84 20 120/80 94 Nasal Cannula 09/06 2200 98.3 84 20 120/80 09/06 2000 98.0 82 18 120/80 09/06 1800 98.2 86 18 122/86 09/06 1800 97.0 82 16 110/62 09/06 1620 93 Room Air 09/06 1600 97.2 80 16 112/58 09/06 1600 97.2 80 16 112/58 93 Room Air 09/06 1531 98.7 80 18 124/60 97 Room Air 09/06 1400 97.2 82 16 114/68 09/06 1200 97.2 80 16 110/62 09/06 1115 98.2 09/06 1000 97.5 80 16 118/62 09/06 0951 97.0 86 20 112/60 09/06 0938 96 Nasal 1.0L Cannula Intake & Output 09/07 1600 09/07 0800 09/07 0000 Intake Total 800 600 Output Total Balance 800 600 Intake, IV 200 200 Intake, Oral 600 400 Room air oxygen saturation 90-93% exam of his chest shows faint expiratory wheezing cardiac exam shows regular S1 and S2 without murmurs Impression/Plan Impression/Plan Impression/Plan: 42-year-old with acute hypoxic respiratory failure and acute exacerbation of asthma is slowly improving patient continues to improve and is now on room air Recommendations: Assess oxygen saturation with ambulation. Flow is now increased to 310 L/m. Convert to by mouth prednisone and slowly taper.
[2017-09-07 08:57] LABS: ABSOLUTE BASOPHIL COUNT 0 /CUMM (0.0-0.2); ABSOLUTE EOSINOPHIL COUNT 0 /CUMM (0.0-0.7); ABSOLUTE GRANULOCYTE CT 17.1 /CUMM (1.4-6.5); ABSOLUTE LYMPH COUNT 0.8 /CUMM (1.2-3.4); ABSOLUTE MONOCYTE COUNT 0.5 /CUMM (0.10-0.60); BASOPHIL % 0 % (0.0-2.0); EOSINOPHIL % 0 % (0-5); GRANULOCYTE % 92.7 % (42.2-75.2); HEMATOCRIT 39.6 % (42-52); MEAN CORPUSCULAR HGB CONC 32.5 G/DL (33.0-37.0); MEAN CORPUSCULAR VOLUME 83.1 FL (80.0-94.0); MEAN PLATELET VOLUME 8.7 FL (7.4-10.4); PLATELET COUNT 204 /CUMM (130-400); RBC DISTRIBUTION WIDTH 15.2 % (11.5-14.5); RED BLOOD CELL CT 4.76 /CUMM (4.70-6.10)
[2017-09-07 10:57] LABS: WHITE BLOOD CELL COUNT 18.4 /CUMM (4.8-10.8)
[2017-09-07] MEDS ORDERED: ZITHROMAX250 M2 PO (13:14)
[2017-09-07] MEDS ORDERED: GABAPENTIN100 M2 PO (13:19)
[2017-09-07] MEDS ORDERED: TAMIFLU75 M1 PO (13:19)
[2017-09-07] MEDS ORDERED: GUAIFENESIN ER600 MG PO (13:19)
[2017-09-07] MEDS ORDERED: TRAZODONE HCL50 M1 PO (13:19)
[2017-09-07] MEDS ORDERED: MONTELUKAST SOD10 M1 PO (13:24)
--- NOTE | 2017-09-07 13:27 | Patient Discharge Instructions ---
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 Please take medications as prescribed Follow up with psych as out patient, Davion will contact you to make an appointment Diet Recommended Diet: Heart Healthy Activity Additional ACTIVITY Info: as tolerated Acute Coronary Syndrome Inclusion Criteria At DC or during hospital stay patient has or had the following: ACS DIAGNOSIS No Discharge Core Measures Meds if any: Prescribed or Continued at Discharge Meds if any: NOT Prescribed or Continued at Discharge Congestive Heart Failure Inclusion Criteria At DC or during hospital stay patient has or had the following: CHF DIAGNOSIS No Discharge Core Measures Meds if any: Prescribed or Continued at Discharge Meds if any: NOT Prescribed or Continued at Discharge Cerebrovascular accident Inclusion Criteria At DC or during hospital stay patient has or had the following: CVA/TIA Diagnosis No Discharge Core Measures Meds if any: Prescribed or Continued at Discharge Meds if any: NOT Prescribed or Continued at Discharge Venous thromboembolism Inclusion Criteria VTE Diagnosis No VTE Type NONE VTE Confirmed by (Test) NONE Discharge Core Measures - Per Current guidelines, there needs to be overlap - treatment for the first 5 days of Warfarin therapy. - If discharged on Warfarin prior to 5 days of - overlap therapy, the patient will need to be - assessed for post discharge needs including - *Post discharge parental anticoagulation - *Warfarin and/or parental anticoagulation education - *Follow up date to check INR post discharge At least 5 days overlap therapy as Inpatient No Meds if any: Prescribed or Continued at Discharge Note: Overlap Therapy is Warfarin and Anticoagulant Meds if any: NOT Prescribed or Continued at Discharge
[2017-09-07] MEDS ORDERED: PREDNISONE10 M2 PO (13:30)
[2017-09-07] MEDS ORDERED: PROAIR HFA8.5 GM INH (13:38)
[2017-09-07] MEDS ORDERED: MAALOX ADVANCE355 M2 PO (13:38)
[2017-09-07] MEDS ORDERED: METHADONE HCL10 M1 PO (13:41)
--- NOTE | 2017-09-09 08:51 | Incdntl Nt Psy ---
Incidental Note Notation: OPS appointment 09/23/17 @ [id number], [id number] [place], . Pt in agreement and will bring ins. card and photo ID.
== END 2017-09-07 15:25 | DRG 202 ==
LOC: ERH 20:40 → 2NB 23:31 → ERHI 23:31 → ENRESERV 09-05 01:18 → 2NA 09-05 01:48 → 2NB 09-05 01:48 → 2NA 09-05 13:19 → ENPENDDIS 09-07 13:31 → 2NA 09-07 15:25
PROVIDERS: Internal Medicine; Physician Assistant; Student in an Organized Health Care Education/Training Program
DX: J45.901 Unspecified asthma with (acute) exacerbation (principal); J96.01 Acute respiratory failure with hypoxia; F32.9 Major depressive disorder, single episode, unspecified; F41.9 Anxiety disorder, unspecified; F43.10 Post-traumatic stress disorder, unspecified; I10 Essential (primary) hypertension; G47.00 Insomnia, unspecified; F17.200 Nicotine dependence, unspecified, uncomplicated
CPT/HCPCS: 2NAP; ERO; 36415; 71045; 71046; 82436; 87070; 87449; 87450; 87804; 87804-59; 93005; 93010; 96372; 96374; J0131; J0456; J1650; J2405; J2920; J3105; J3490; J7040; J7060; Q2036

== ENCOUNTER 2018-01-18 16:49 | Inpatient (IN) | payer OTHER ==
[~2018-01-18] VITALS: Ht 170.2 cm; Wt 101.0 kg
[~2018-01-18 16:49] MED LIST changes: +GABAPENTIN100 M2 PO; +GUAIFENESIN ER600 MG PO; +MAALOX ADVANCE355 M2 PO; +METHADONE HCL10 M1 PO; +MONTELUKAST SOD10 M1 PO; +PROAIR HFA8.5 GM INH; +TAMIFLU75 M1 PO; +TRAZODONE HCL50 M1 PO; +ZITHROMAX250 M2 PO
--- NOTE | 2018-01-18 16:54 | ED PSYCHIATRIC COMPLAINT ---
History of Present Illness General Chief Complaint: Psychiatric Related Complaint Stated Complaint: BIBA ON PEER FOR AMS, AGITATION, ?OD Source: old records, EMS, police Exam Limitations: unable to give history, clinical condition Vital Signs & Intake/Output Vital Signs & Intake/Output Vital Signs Date Time Temp Pulse Resp B/P B/P Pulse O2 O2 Flow FiO2 Mean Ox Delivery Rate 01/18 2258 Nasal 2.0L Cannula 01/18 2257 100.2 109 18 165/93 98 Nasal 2.0L Cannula 01/18 2018 181/113 01/18 2014 102.2 112 18 170/92 96 Room Air 01/18 1911 100.6 100 18 170/92 98 Nasal 2.0L Cannula 01/18 1900 Nasal 2.0L Cannula 01/18 1842 18 99 Room Air 01/18 1832 103 16 144/86 100 Nasal 2.0L Cannula 01/18 1755 107 16 162/95 96 Nasal 2.0L Cannula 01/18 1738 101.5 01/18 1736 100 Nasal 2.0L Cannula 01/18 1735 105 16 151/82 95 Room Air 01/18 1705 Room Air 01/18 1659 104 21 179/116 95 Room Air Allergies Coded Allergies: NO KNOWN ALLERGIES (06/21/17) Reconcile Medications Albuterol Sulfate (Proair Hfa) 90 MCG HFA.AER.AD 2 PUF INH Q4-6 PRN PRN ASTHMA Azithromycin (Zithromax) 250 MG TABLET 1 DP PO AD ASTHMA Gabapentin 100 MG CAPSULE 100 MG PO Q8 ANXIETY Guaifenesin (Guaifenesin ER) 600 MG TAB.ER.12H 600 MG PO Q12 COUGH Mag Hydrox/Al Hydrox/Simeth (Maalox Advanced Suspension) 200 MG-200 MG-20 MG/5 ML ORAL.SUSP 30 ML PO Q6-8P ABDOMINAL PAIN Methadone Hydrochloride (Methadone HCl) 10 MG TABLET 100 MG PO DAILY PAIN CONTROL (Reported) Montelukast Sodium 10 MG TABLET 10 MG PO AT BEDTIME ASTHMA Olmesartan/Hydrochlorothiazide (Benicar Hct 40-25 MG Tablet) 40 MG-25 MG TABLET 1 TAB PO DAILY HEART (Reported) Oseltamivir Phosphate (Tamiflu) 75 MG CAPSULE 75 MG PO BID FLUID RETENTION Prednisone 10 MG TABLET 6 TAB PO DAILY ASTHMA take 6 tab x 2 days then 5 x 2 days then 4 x 2 days then 3 x 2 days then 2 x 2 days then 1x 2 days and stop Trazodone HCl 50 MG TABLET 50 MG PO AT BEDTIME NEEDED PRN INSOMNIA Triage Nurses Notes Reviewed? yes HPI: Per EMS patient was found running outside naked. The patient is highly agitated upon presentation and presents with a police escort. History cannot be obtained from the gentleman given his disorganized and agitated state. ED Sepsis Exam Date of Focused Sepsis Exam: 01/18/18 Time of Focused Sepsis Exam: 2139 Sepsis Cardiac Exam: Tachycardia Sepsis Resp Exam: CTA Sepsis Cap Refill Exam: <2 Sec Sepsis Peripheral Pulse Exam: Normal Sepsis Peripheral Pulse Location: Radial Sepsis Skin Color Exam: Normal for Ethnicity Skin Temp/Moisture Exam: Hot/Dry Past History Medical History Any Pertinent Medical History? 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 Hx Contributory? No Review of Systems Review of Systems Constitutional: Reports: see HPI. Comments Patient is unable to provide review of systems Physical Exam Physical Exam General Appearance: see below Neurological/Psychiatric: see below Comments: Exam extremely limited given the patient's highly agitated and uncooperative state General: Alert, agitated and uncooperative Head: Normocephalic, less than 1 cm laceration over the right brow not gaping Eyes: Normal inspection, no nystagmus, EOMI Ears: Normal inspection Nose: Normal inspection Throat: Moist mucosa Neck: Supple, no goiter Heart: Regular rate and rhythm Lungs: Clear to auscultation bilaterally Abdomen: nondistended Chest: Good chest excursion with respirations Extremities: Normal range of motion grossly, no cyanosis clubbing or edema of the extremities Neurologic: cranial nerves II through XII grossly intact, speech clear, gait not assessed, Psychiatric: Unable to assess, possible delusions given the patient's disorganized answers and frequent references to "manny". SAD PERSONS Done? unobtained due to conditi Progress Differential Diagnosis: drug intoxication, psychiatric disorder, electrolyte abnormality, hypoxia, hypoglycemia head trauma, meningitis Plan of Care: Orders Procedure Date/time Status TSH REFLEX 01/19 06 Active Add-on Test (ER Only) 01/19 2352 Active Add-on Test (ER Only) 01/18 234 Active BLOOD CULTURE 01/18 2023 Active CEREBROSPINAL FLUID CULTURE 01/18 1959 Active CYTOLOGY SPECIMEN 01/18 1959 Active CSF TOTAL PROTEIN 01/18 1959 Complete CEREBROSPINAL FL CELL CT 01/18 1959 Complete CSF LDH 01/18 1959 Complete CSF GLUCOSE 01/18 1959 Complete [place], Insertion/Removal/Asses 01/18 1958 Active CULTURE,URINE 01/18 1958 Active Restraint- Discontinue 01/18 183 Active LACTIC ACID 01/18 172 Active Saline Lock 01/18 170 Active Restraint- Behavioral (Order) 01/18 1705 Active URINE DRUG SCREEN FOR ER ONLY 01/18 1705 Complete URINALYSIS 01/18 1705 Complete TROPONIN LEVEL 01/18 1705 Active ETHANOL 01/18 1705 Active COMPREHENSIVE METABOLIC PANEL 01/18 1705 Active CBC WITHOUT DIFFERENTIAL 01/18 1705 Complete EKG 01/18 170 Active Current Medications Sig/Lorena Start time Last Medication Dose Stop Time Status Admin Sodium Chloride 1,000 ML BOLUS ONE 01/18 2345 AC (Normal Saline 0.9%) 01/19 0044 Laboratory Tests 01/18/182055: CSF Glucose 84 H, CSF LDH 113, CSF Total Protein 55 01/18/182055: CSF WBC 3, CSF RBC 1 H, CSF Comment 01/18/18 1855: Urine Opiates Screen < 100, Methadone Screen > 735 H, Barbiturate Screen < 60, Ur Phencyclidine Scrn < 6.00, Amphetamines Screen < 100, U Benzodiazepines Scrn < 85, Urine Cocaine Screen < 50, Urine Cannabis Screen > 80.00 H, Urine Color YEL, Urine Clarity CLEAR, Urine pH 6.0, Ur Specific Bouse 1.020, Urine Protein NEG, Urine Ketones NEG, Urine Nitrite NEG, Urine Bilirubin NEG, Urine Urobilinogen 0.2, Ur Leukocyte Esterase NEG, Ur Microscopic SEDIMENT EXAMINED, Urine RBC RARE, Urine Hemoglobin LARGE H, Urine Glucose NEG 01/18/18 1720: Anion Gap 22 H, Estimated GFR > 60, BUN/Creatinine Ratio 11.0, Glucose 161 H, Lactic Acid Pending, Calcium 9.2, Total Bilirubin 0.7, AST 71 H, ALT 36, Alkaline Phosphatase 60, Troponin I < 0.01, Total Protein 8.1, Albumin 4.8, Globulin 3.3, Albumin/Globulin Ratio 1.5, CBC w Diff NO MAN DIFF REQ, RBC 5.28, MCV 82.7, MCH 27.6, MCHC 33.4, RDW 14.5, MPV 8.1, Gran % 88.1 H, Lymphocytes % 5.0 L, Monocytes % 6.7, Eosinophils % 0, Basophils % 0.2, Absolute Granulocytes 20.9 H, Absolute Lymphocytes 1.2, Absolute Monocytes 1.6 H, Absolute Eosinophils 0, Absolute Basophils 0, Serum Alcohol < 10.0 Microbiology 01/18 2110 BLOOD: Blood Culture - RECD 01/18 2102 BLOOD: Blood Culture - RECD 01/19 2056 CENT N S: CSF Culture - RES 01/19 2056 CENT N S: Gram Stain - RES 01/18 1958 URINE ROUT: Urine Culture - ORD Diagnostic Imaging: Discussed w/RAD: Radiology Read, CT Scan. Radiology Impression: no acute abnormality CXR Impression: no acute abnormality Initial ED EKG: sinus tachycardia with a heart rate of 106 and probable left ventricular hypertrophy, heart rate has decreased compared with prior EKG. Comments: Unfortunately the patient is not responding to verbal intervention or redirection. He now requires chemical sedation to control his agitation and prevent harm to himself and ED staff. 01/18/2018 5:27:15 PM despite medications, Augustine continues to rise and fight against emergency department interventions. Ketamine has been ordered. 01/18/2018 6:39:06 PM given patient's sonorous respirations I placed a right nostril nasal trumpet with resolution of the snoring. Patient's oxygen saturation is 100% so we will be in his nasal cannula to off. Restraints have been removed and the patient is sleeping at this time. 01/18/2018 7:57:12 PM patient's evaluation reveals cannabis and methadone in the urine. He is beginning to wake again and still appears disoriented. Given his persistent fever I will attempt an LP after a second dose of ketamine sedation. 01/18/2018 8:11:38 PM Rocephin order for the possibility of meningitis given the altered mental status and patient's low-grade fever. I have updated his father and step sister who haven't seen him in a number of days. 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 01/18/2018 9:09:38 PM lumbar puncture performed after verbal consent (PAR explained) from family to rule out meningitis. Clear colorless fluid obtained after initial slight blood tinging. Patient tolerated the procedure well under ketamine sedation. 01/18/2018 9:38:28 PM Augustine has come out of the ketamine sedation and although he seems a bit more lucid he is still screaming and does not respond to verbal intervention. He also removed his IV. His evaluation has been challenging given his lack of cooperation and inconsistent sedation despite medications. I am forced to continue both physical restraint and chemical sedation given the high risk of self injury. The administration of IV fluids has been delayed given difficulty in maintaining a patent IV. Departure Departure Disposition: STILL A PATIENT Condition: Stable Clinical Impression Primary Impression: Altered mental status Qualifiers: Altered mental status type: unspecified Qualified Code: R41.82 - Altered mental status, unspecified Secondary Impressions: Forehead laceration Qualifiers: Encounter type: initial encounter Qualified Code: S01.81XA - Laceration without foreign body of other part of head, initial encounter Marijuana use Methadone dependence Referrals: Quinten Kessler DO (PCP/Family) Departure Forms: Customer Survey General Discharge Information Admission Note Spoke With: Den[facility]AG[facility] Documentation of Exam: Documentation of any treatments & extenuating circumstances including Concerns Regarding Discharge (functional status, medication knowledge or non-compliance, living conditions, etc.) that warrant an admission rather than observation: Patient presented highly agitated and disoriented and he is subsequently required repeated doses of chemical sedation and physical restraints. He has had a fever persistently through his emergency department stay although there is no clear focus of infection at this time. Patient has yet to return to what I appreciate to be his baseline mental status. He continues to require physical restraint to prevent injury to himself. I do not feel he can be treated as an outpatient under these circumstances. He requires hospitalization and a protected environment, treatment with IV fluids and serial neurologic examinations. Neurology and psychiatry consultations should be considered given his altered mental status for the possibility of an underlying psychiatric disorder (patient's family suspects there is a component of psychiatric disease) . Culture results should be followed and treatment just accordingly. As this patient becomes more lucid and cooperative chemical sedation and physical restraints should be weaned. I feel this patient will require a multiple day hospitalization. Critical Care Note Critical Care Note Critical Care Time: 30-74 min
[2018-01-18 17:27] LABS: ABSOLUTE BASOPHIL COUNT 0 /CUMM (0.0-0.2); ABSOLUTE EOSINOPHIL COUNT 0 /CUMM (0.0-0.7); ABSOLUTE GRANULOCYTE CT 20.9 /CUMM (1.4-6.5); ABSOLUTE LYMPH COUNT 1.2 /CUMM (1.2-3.4); ABSOLUTE MONOCYTE COUNT 1.6 /CUMM (0.10-0.60); BASOPHIL % 0.2 % (0.0-2.0); EOSINOPHIL % 0 % (0-5); HEMATOCRIT 43.7 % (42-52); MEAN CORPUSCULAR HGB 27.6 PG (27.0-31.0); MEAN CORPUSCULAR HGB CONC 33.4 G/DL (33.0-37.0); MEAN CORPUSCULAR VOLUME 82.7 FL (80.0-94.0); MEAN PLATELET VOLUME 8.1 FL (7.4-10.4); PLATELET COUNT 246 /CUMM (130-400); RBC DISTRIBUTION WIDTH 14.5 % (11.5-14.5); RED BLOOD CELL CT 5.28 /CUMM (4.70-6.10); WHITE BLOOD CELL COUNT 23.7 /CUMM (4.8-10.8)
[2018-01-18 17:54] LABS: GRANULOCYTE % 88.1 % (42.2-75.2)
--- NOTE | 2018-01-18 18:36 | CT SCAN REPORT ---
EXAMINATION: CT HEAD WITHOUT CONTRAST CLINICAL INFORMATION: Mental status change. Right forehead laceration. COMPARISON: None TECHNIQUE: Contiguous axial imaging was performed from the skull base to vertex without intravenous administration of contrast. DLP: 709.75 mGy-cm FINDINGS: There is no evidence of acute intracranial hemorrhage or territorial infarction. No abnormal mass effect or midline shift is seen. [place] to white matter differentiation is well preserved. No extra-axial fluid collections are identified. The ventricles are normal in size. There is no abnormal attenuation within the brain parenchyma. No skull fracture.. There is a tracheal tube catheter present. There is a small rim of mucosal thickening in the maxillary sinuses bilateral and bilateral ethmoid sinuses. The mastoid air cells and middle ear cavities are normally aerated. IMPRESSION: No acute intracranial pathology.
--- NOTE | 2018-01-18 18:44 | RADIOLOGY REPORT ---
EXAMINATION: XR PORTABLE CHEST CLINICAL INFORMATION: Altered mental status COMPARISON: 09/06/2017 TECHNIQUE: Portable frontal view of the chest was obtained. FINDINGS: Rotated positioning. Cardiac and mediastinal silhouette is within normal limits. Low lung volumes.. There are no pleural effusions or pneumothorax. No focal consolidation. No acute osseous abnormality. IMPRESSION: No evidence of acute process.
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
--- NOTE | 2018-01-19 01:51 | Admission Certification ---
Admission Certification Certification Statement - As attending physician, I certify that at the time of - admission, based on clinical presentation, severity of - symptoms, need for further diagnostic testing and - therapeutic interventions, and risk of adverse outcomes - without in-hospital treatment, in my clinical assessment, - this patient requires an acute hospital stay for a minimum - of two nights or longer. I have also considered psychsocial - factors such as support system, advanced age, financial - issues, cognitive issues, and failed out-patient treatments, - past re-admission history, safety of patient, and lack of - compliance as applicable. Specific rationale supporting this admission is: Altered mental status, substance abuse, agitation, fever of unclear etiology.
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
[2018-01-19 08:00] VITALS: BP 162/90
[2018-01-19 08:20] LABS: ABSOLUTE BASOPHIL COUNT 0 /CUMM (0.0-0.2); ABSOLUTE EOSINOPHIL COUNT 0 /CUMM (0.0-0.7); ABSOLUTE LYMPH COUNT 1.4 /CUMM (1.2-3.4); ABSOLUTE MONOCYTE COUNT 1.3 /CUMM (0.10-0.60); BASOPHIL % 0 % (0.0-2.0); EOSINOPHIL % 0 % (0-5)
[2018-01-19 08:33] LABS: MEAN CORPUSCULAR HGB 27.5 PG (27.0-31.0); MEAN CORPUSCULAR HGB CONC 33.2 G/DL (33.0-37.0); MEAN CORPUSCULAR VOLUME 82.8 FL (80.0-94.0); MEAN PLATELET VOLUME 9.1 FL (7.4-10.4); PLATELET COUNT 162 /CUMM (130-400); RBC DISTRIBUTION WIDTH 14.1 % (11.5-14.5); RED BLOOD CELL CT 4.68 /CUMM (4.70-6.10); WHITE BLOOD CELL COUNT 19.8 /CUMM (4.8-10.8)
[2018-01-19 08:35] LABS: HEMATOCRIT 38.7 % (42-52)
[2018-01-19 09:34] LABS: GRANULOCYTE % 86.3 % (42.2-75.2)
[2018-01-19 16:00] VITALS: BP 130/62; BP 130/82
[2018-01-19] MEDS ORDERED: TOPROL XL50 M1 PO (16:57)
[2018-01-20] VITALS: BP 110/60
--- NOTE | 2018-01-20 07:56 | PN- Resident CRCU ---
See Addendum Elisabet Hidalgo 01/20/18 0754: Subjective HPI/CRCU Issues: #Agitation was altered mental status: Likely is psychotic etiology, toxic/ metabolic encephalopathy #Fever of unknown origin, with SIRS (leukocytosis, tachycardia, fever) #Lactic acidosis with osmolar gap, resolved #Elevated CK likely 2/2 rhabdomyolysis, however no rigidity #PMH of asthma, hypertension, PTSD No overnight event with agitation/combative behaviors. Patient's fever resolved last night. On Ativan drip. Objective Vital Signs & I&O Last 8 Hrs of Vitals and I&O: Intake & Output 01/20 0800 Intake Total 2200 Output Total 600 Balance 1600 Intake, IV 2200 Output, Urine 600 Exam General Appearance: no apparent distress, sedated Head: normal appearance, ecchymosis, lacerations, right eye abrasion on eyebrow, healing without active bleeding, periorbital soft tissues ecchymosis from trauma , no obvious swelling. Sclera with bloody stain/injection compared to contralateral, no active discharge/bleeding. Pupil constricted with limited reactivity to light, ophomoscopy exam unobtainable. Unable to assess pain scale due to sedation Respiratory: normal breath sounds Cardiovascular: regular rate/rhythm Gastrointestinal: soft, non-tender Extremities: normal inspection, no edema Current Medications: Current Medications Sig/Lorena Start time Last Medication Dose Route Stop Time Status Admin Acetaminophen 1,000 MG Q6P PRN 01/19 0130 AC N/A 1 UNIT IV Albuterol Sulfate 2 PUF Q4-6 PRN PRN 01/19 0215 AC INH Ampicillin Sodium/ 3,000 MG Q6 01/19 0130 AC 01/20 Sulbactam Sodium IV 0524 Sodium Chloride 100 ML Enoxaparin Sodium 40 MG DAILY 01/19 0900 AC 01/19 SC 0812 Lorazepam 50 MG Q10H 01/19 1600 AC 01/20 Dextrose/Water 500 ML IV 0208 Lorazepam 2 MG ONE ONE 01/19 1000 DC 01/19 IV 01/19 1001 1001 Lorazepam 6 MG ONE ONE 01/19 0930 DC 01/19 IV 01/19 0931 0928 Lorazepam 50 MG Q24H 01/19 0930 DC 01/19 Dextrose/Water 500 ML IV 01/19 1559 1007 Lorazepam 2 MG ONE ONE 01/19 0900 DC 01/19 IV 01/19 0901 0910 Lorazepam 1 MG Q1 NEEDED PRN 01/19 0230 AC 01/19 IV 0915 Pantoprazole Sodium 40 MG DAILY 01/19 0615 AC 01/19 IV 0812 Potassium Phosphate 15 mMol ONE ONE 01/19 1545 DC 01/19 Dextrose/Water 250 ML IV 01/19 1949 1631 Sodium Chloride 1,000 ML Q6H 01/19 1045 AC 01/20 IV 0524 Sodium Chloride 1,000 ML ONCE ONE 01/19 0300 DC 01/19 IV 01/19 1259 0311 Impression/Plan Impression/Problem List Impression: 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 On admission T-max 102.2 trended down to 100.1 latest vital, remain tachycardia in 100s, saturating 90% on 2 L nasal cannula, Labs: Leukocytosis 23.7, H&H stable, PLT 246, lactic acidosis 8.1 trending down to 3.7, negative troponins 2, elevated prolactin 20.4 U tox positive for methadone, and cannabis, UA mostly negative for infection CXF: WBC 3, RBC 1, glucose 84, LDH 113, Total protein 55. CXR: no acute process. CT head: no acute pathology. EKG: sinus tachycardia, Qtc 463. A/P/hospital course #Agitation was altered mental status: Likely is psychotic etiology, toxic/ metabolic encephalopathy as well. Very unlikely to be meningitis based on CSF studies #Pending rule out drug overdose #Fever of unknown origin, with SIRS (leukocytosis, tachycardia, fever) #Lactic acidosis with osmolar gap, resolved #Elevated CK secondary to mild rhabdomyolysis, however no rigidity #PMH of asthma, hypertension, PTSD VS: SR VSS, SAS 3 stable In/Out: 5258/1900, retaining fluid ? Sedation: Ativan drip decreased to 50. Continue four-point soft restraints Respiratory: likely projectional. Will repeat as needed. No focal consolidation/effusion/ pneumothorax per radiology. Infection: -low suspicious for preorbital/orbital cellulitis based on PE, would recheck once patient's mental status improves. May consider opthmology consult if needed. Cardio: intake at this point. without any stent placement/infarction event/CABG/CHF to her knowledge. Hem: Metabolism: , patient was never alcoholic and had not been using alcohol in daily life. -update from [facility]: last visit on 01/18/2018 and medicated 100mg at 6AM, no take-home bottles and dependes on daily visit, being compliant to daily visit. Based nursing record, patient was at his baseline mental status. No active tapering plan. Alimentary: Neuro: DVT prophylaxis: Pharm PPX + ALPS N.p.o. Full Code Problem List: 1. Altered mental status 2. Marijuana use 3. Methadone dependence 4. Forehead laceration Pain Ratin Tomorrow's Labs & Rationales: ICU/CBC Plan DVT/Prophylaxis: mechanical, pharmacological Bari Diaz MD 01/20/18 1003: Attending MD Review Statement Attending Sign Off Attending Cosign Statement: I have: examined this patient, reviewed avalbl EMR data, personally reviewd images, discussd w/resident/PA/[employer], discussed mgmt plan w/марина, discussed mgmt plan w/CM, discussed mgmt plan w/pt, agreed w/resident/PA/[employer], amended to note. Other Findings: IBari M.D. have examined this patient, reviewed available EMR data, personally reviewed images, discussed with resident/PA/[employer], discussed management plan with housestaff and nursing staff, discussed managment plan all of healthcare providers, discussed management plan with patient and/or family, agreed with resident/PA/[employer]. The past history and parts of the chart have been autopopulated. Impression 42 year old man * substance dependence/likely withdrawal as well/delirium * fever most likely consistent with aspiration pneumonia/pneumonitis * Rhabdomyolsis * hx of asthma Plan Respiratory/ID -currently stable respiratory status -trc at this time is not feasible given severe agitation -unasyn empirically -f/u all cultures CVS -check ECHO, ?endocarditis, ?if any IV drug administration - check once patient is cooperative -monitor hemodynamics Heme -check coags -monitor cbc Metabolic - LABS PENDING -ins/outs -monitor creatinine -mag, phos, k, monitor and replete as needed -IVF, trend CK Alimentary -NPO Neuro -requiring high doses of ativan, will watch for type B lactic acidosis -there is a chance that the patient will require intubation if his sedative requirements will be increased -once more cooperative will re-evaluate his right eye, appears to be improving DVT prophylaxis at all times Requiring restraints/sitter - ativan being titrated down, hopefully with better cooperation will remove restraints if feasible TTS 35 min
[2018-01-20 08:00] VITALS: BP 130/92
--- NOTE | 2018-01-20 08:27 | RADIOLOGY REPORT ---
EXAMINATION: XR PORTABLE CHEST CLINICAL INFORMATION: Treatment for aspiration pneumonia. No acute on first chest x-ray. Rule out acute process change. COMPARISON: Chest x-ray dated 01/18/2018, 09/06/2017 and 09/04/2017. TECHNIQUE: Portable AP semierect view of the chest was obtained. FINDINGS: Multiple EKG leads overlie the chest. The cardiomediastinal silhouette is enlarged, likely due to projection and low lung volumes. Low lung volumes are seen. There is haziness in the left lung base with indistinctness of the left hemidiaphragm, likely due to technique of the exam and overlying soft tissues. Otherwise, no focal consolidation, effusion or pneumothorax is seen. Bony structures are unremarkable. IMPRESSION: Low lung volumes with findings in the left lung base most likely projectional and related to overlapping soft tissues. Consider follow-up PA and lateral views of the chest to exclude pneumonia.
[2018-01-20 12:00] VITALS: BP 140/100
--- NOTE | 2018-01-20 13:03 | ECHOCARDIOGRAM REPORT ---
DAVID HESTER Age: 42 : 1975 Gender: M Exam Date: 01/19/2018 17:03 Exam Location: [facility] Ht (in): 67 Wt (lb): 221 BSA: 2.22 BP: 162 / 90 Ordering Physician: Elisabet Hidalgo MD Referring Physician: Elisabet Hidalgo MD Technologist: Raysa Kaur RDCS Room Number: [id number] Indications: INFECTIVE ENDOCARDITIS Rhythm: Sinus Technical Quality: Fair FINDINGS Left Ventricle Normal size left ventricle. Mild concentric left ventricular hypertrophy. No obvious regional wall motion abnormalities. Normal left ventricular ejection fraction visually estimated at >65%. Normal left ventricular diastolic filling pattern for age. Right Ventricle Normal right ventricular size and function. Right Atrium Normal right atrial size. Left Atrium Normal left atrial size. Mitral Valve Structurally normal mitral valve. No mitral regurgitation. Aortic Valve Mild aortic sclerosis. No aortic stenosis. Trace aortic regurgitation. Tricuspid Valve Structurally normal tricuspid valve. No tricuspid regurgitation. Pulmonic Valve Pulmonic valve not well visualized, grossly normal. Trace pulmonic regurgitation. Pericardium No pericardial effusion. Great Vessels Moderate aortic dilatation at the level of the sinuses of valsalva (root). Moderately dilated proximal ascending aorta (tube). CONCLUSIONS Normal size left ventricle. Mild concentric left ventricular hypertrophy. Normal left ventricular ejection fraction visually estimated at > 65%. Normal left ventricular diastolic filling pattern for age. Normal right ventricular size and function. Normal atrial size. Trace aortic regurgitation. Trace pulmonic regurgitation. Moderate aortic dilatation at the level of the sinuses of valsalva (root). Moderately dilated proximal ascending aorta (tube). Chris Long M.D. (Electronically Signed) Final Date: 20 January 2018 13:02 MEASUREMENTS (Male / Female) Normal Values 2D ECHO LV Diastolic Diameter PLAX 5.6 cm 4.2 - 5.9 / 3.9 - 5.3 cm LV Systolic Diameter PLAX 2.9 cm 2.1 - 4.0 cm LV Fractional Shortening PLAX 48.2 % 25 - 46 % LV Ejection Fraction 2D Teich 79.0 % IVS Diastolic Thickness 1.1 cm LVPW Diastolic Thickness 1.2 cm LV Relative Wall Thickness 0.4 RV Internal Dim ED PLAX 2.5 cm 1.9 - 3.8 cm LVOT Diameter 2.2 cm Aortic Root Diameter 4.6 cm LA Systolic Diameter LX 3.6 cm 3.0 - 4.0 / 2.7 - 3.8 cm LA Volume 46.0 cm 18 - 58 / 22 - 52 cm Ascending Aorta Diameter 4.2 cm DOPPLER AV Peak Velocity 134.0 cm/s AV Peak Gradient 7.2 mmHg AV Mean Velocity 104.0 cm/s AV Mean Gradient 5.0 mmHg AV Velocity Time Integral 26.1 cm LVOT Peak Velocity 94.0 cm/s LVOT Peak Gradient 3.5 mmHg LVOT Mean Velocity 55.2 cm/s LVOT Mean Gradient 1.0 mmHg LVOT Velocity Time Integral 14.4 cm LVOT Stroke Volume 54.7 cm AV Area Cont Eq vti 2.1 cm AV Area Cont Eq pk 2.7 cm MV Peak Velocity 86.9 cm/s MV Peak Gradient 3.0 mmHg MV Mean Velocity 57.7 cm/s MV Mean Gradient 2.0 mmHg Mitral E Point Velocity 72.1 cm/s Mitral A Point Velocity 69.1 cm/s Mitral E to A Ratio 1.0 MV PHT Velocity 90.3 cm/s MV Deceleration [place] 657.0 cm/s MV Pressure Half Time 41.2 ms MV Area PHT 5.3 cm MV Deceleration Time 232.0 ms PV Peak Velocity 117.0 cm/s PV Peak Gradient 5.5 mmHg PV Mean Velocity 78.7 cm/s PV Mean Gradient 3.0 mmHg PV Velocity Time Integral 21.2 cm LV E' Lateral Velocity 8.9 cm/s Mitral E to LV E' Lateral Ratio 8.1 LV E' Septal Velocity 5.7 cm/s Mitral E to LV E' Septal Ratio 12.8
[2018-01-20 13:53] LABS: ABSOLUTE BASOPHIL COUNT 0 /CUMM (0.0-0.2); ABSOLUTE EOSINOPHIL COUNT 0 /CUMM (0.0-0.7)
[2018-01-20 13:56] LABS: ABSOLUTE LYMPH COUNT 2.4 /CUMM (1.2-3.4); BASOPHIL % 0.2 % (0.0-2.0); EOSINOPHIL % 0.1 % (0-5); GRANULOCYTE % 77.8 % (42.2-75.2); MEAN CORPUSCULAR HGB CONC 33.1 G/DL (33.0-37.0); MEAN CORPUSCULAR VOLUME 84.4 FL (80.0-94.0); MEAN PLATELET VOLUME 8.2 FL (7.4-10.4); PLATELET COUNT 175 /CUMM (130-400); RBC DISTRIBUTION WIDTH 14.6 % (11.5-14.5); RED BLOOD CELL CT 3.97 /CUMM (4.70-6.10); WHITE BLOOD CELL COUNT 15.4 /CUMM (4.8-10.8)
[2018-01-20 13:57] LABS: HEMATOCRIT 33.5 % (42-52)
[2018-01-20 14:04] LABS: PT 12.7 SEC (9.4-12.5)
[2018-01-20 16:00] VITALS: BP 140/90
[2018-01-20 20:00] VITALS: BP 152/90
[2018-01-21] VITALS: BP 130/60
[2018-01-21 05:06] LABS: ABSOLUTE BASOPHIL COUNT 0 /CUMM (0.0-0.2); ABSOLUTE EOSINOPHIL COUNT 0.1 /CUMM (0.0-0.7); ABSOLUTE GRANULOCYTE CT 7.8 /CUMM (1.4-6.5); ABSOLUTE LYMPH COUNT 2.6 /CUMM (1.2-3.4); ABSOLUTE MONOCYTE COUNT 0.8 /CUMM (0.10-0.60); BASOPHIL % 0.1 % (0.0-2.0); EOSINOPHIL % 0.5 % (0-5); GRANULOCYTE % 69.4 % (42.2-75.2); HEMATOCRIT 32.2 % (42-52); MEAN CORPUSCULAR HGB 27.4 PG (27.0-31.0); MEAN CORPUSCULAR HGB CONC 32.8 G/DL (33.0-37.0); MEAN CORPUSCULAR VOLUME 83.5 FL (80.0-94.0); PLATELET COUNT 173 /CUMM (130-400); RBC DISTRIBUTION WIDTH 14.6 % (11.5-14.5); RED BLOOD CELL CT 3.86 /CUMM (4.70-6.10); WHITE BLOOD CELL COUNT 11.3 /CUMM (4.8-10.8)
--- NOTE | 2018-01-21 07:08 | PN- CRCU ---
Subjective HPI/Critical Care Issues: pt seen and examined somnolent on ativan gtt ROS is unobtainable this am earlier he was agitated when awake, but improved overall Objective Current Medications: Current Medications Sig/Lorena Start time Last Medication Dose Route Stop Time Status Admin Acetaminophen 1,000 MG Q6P PRN 01/19 0130 01/20 N/A 1 UNIT IV 2256 Albuterol Sulfate 2 PUF Q4-6 PRN PRN 01/19 0215 AC INH Ampicillin Sodium/ 3,000 MG Q6 01/19 0130 01/21 Sulbactam Sodium IV 0524 Sodium Chloride 100 ML Enoxaparin Sodium 40 MG DAILY 01/19 0900 AC 01/20 SC 0911 Erythromycin 1 BUBBA 4 TIMES/DAY 01/20 1300 AC 01/20 OPH 2256 Lorazepam 50 MG Q10H 01/20 1300 AC 01/21 Sodium Chloride 500 ML IV 0415 Lorazepam 50 MG Q10H 01/19 1600 DC 01/20 Dextrose/Water 500 ML IV 01/20 1259 0208 Lorazepam 1 MG Q1 NEEDED PRN 01/19 0230 AC 01/19 IV 0915 Metoprolol Tartrate 25 MG ONCE ONE 01/20 1845 DC PO 01/20 1846 Pantoprazole Sodium 40 MG DAILY 01/19 0615 AC 01/20 IV 0909 Potassium Chloride 10 MEQ Q1H 01/21 0600 DC 01/21 IV 01/21 0701 0618 Sodium Chloride 1,000 ML Q6H 01/19 1045 AC 01/21 IV 0415 Vital Signs & I&O Last 24 Hrs of Vitals and I&O: Vital Signs Date Time Temp Pulse Resp B/P B/P Pulse O2 O2 Flow FiO2 Mean Ox Delivery Rate 01/21 0400 97 Room Air 01/21 0000 98 Room Air 01/21 0000 98.2 97 24 130/60 98 Room Air 01/20 2000 94 Room Air 01/20 2000 98.8 92 20 152/90 94 Room Air 01/20 1600 97.9 70 16 140/90 99 Nasal 2.0L Cannula 01/20 1600 98 Nasal 2.0L Cannula 01/20 1200 97.7 77 16 140/100 99 Nasal 2.0L Cannula 01/20 1200 98 Nasal 2.0L Cannula 01/20 08 98.4 82 18 130/92 98 Nasal 2.0L Cannula 01/20 0800 99 Nasal 2.0L Cannula Intake & Output 01/21 0800 01/21 0000 01/20 1600 Intake Total 3033 2358 Output Total 1300 525 Balance 1733 1833 Intake, IV 1813 2358 Intake, Oral 1220 0 Number 0 0 Bowel Movements Output, Urine 1300 525 Exam Other Physical Findings: gen - sleeping/snoring head/neck - ecchymosis improving cvs - s1, s2 lungs - rare rhonchi anterior chest abd - soft, bs+ ext without edema Results Last 24 Hrs of Lab Results: Laboratory Tests 01/21/18 0400: Anion Gap 7, Estimated GFR > 60, Glucose 84, Lactic Acid 0.7, Calcium 7.6 L, Phosphorus 2.8, Magnesium 1.7, Total Bilirubin 0.4, AST 178 H, ALT 79 H, Albumin 2.7 L, CBC w Diff NO MAN DIFF REQ, RBC 3.86 L, MCV 83.5, MCH 27.4, MCHC 32.8 L, RDW 14.6 H, MPV 8.0, Gran % 69.4, Lymphocytes % 22.8, Monocytes % 7.2, Eosinophils % 0.5, Basophils % 0.1, Absolute Granulocytes 7.8 H, Absolute Lymphocytes 2.6, Absolute Monocytes 0.8 H, Absolute Eosinophils 0.1, Absolute Basophils 0 01/20/18 1310: Anion Gap 6, Estimated GFR > 60, Glucose 88, Calcium 8.1 L, Phosphorus 2.9, Magnesium 2.1, Total Bilirubin 0.4, AST 179 H, ALT 78 H, Creatine Kinase 75442 H, Albumin 2.9 L, PT 12.7 H, INR 1.16, CBC w Diff NO MAN DIFF REQ, RBC 3.97 L, MCV 84.4, MCH 28.0, MCHC 33.1, RDW 14.6 H, MPV 8.2, Gran % 77.8 H, Lymphocytes % 15.3 L, Monocytes % 6.6, Eosinophils % 0.1, Basophils % 0.2, Absolute Granulocytes 12.0 H, Absolute Lymphocytes 2.4, Absolute Monocytes 1.0 H, Absolute Eosinophils 0, Absolute Basophils 0 Impression/Plan Impression/Plan Impression/Plan: Bari Rockwell M.D. have examined this patient, reviewed available EMR data, personally reviewed images, discussed with resident/PA/CREATIVE WRITING ENGLISH PROFESSOR, discussed management plan with housestaff and nursing staff, discussed managment plan all of healthcare providers, discussed management plan with patient and/or family, agreed with resident/PA/CREATIVE WRITING ENGLISH PROFESSOR. The past history and parts of the chart have been autopopulated. Impression 42 year old man * substance dependence/likely withdrawal as well/delirium * fever most likely consistent with aspiration pneumonia/pneumonitis * Rhabdomyolsis * hx of asthma Plan Respiratory/ID -unasyn empirically -f/u all cultures CVS -ECHO reviewed -monitor hemodynamics Heme -check coags -monitor cbc Metabolic -ins/outs -monitor creatinine -mag, phos, k, monitor and replete as needed -IVF, trend CK Alimentary -swallow evaluation Neuro -ativan to ciwa -mvi, folate, thiamine DVT prophylaxis at all times TTS 35 min
--- NOTE | 2018-01-21 07:32 | PN- Resident CRCU ---
Subjective HPI/CRCU Issues: No overnight event, patient was awake and alert, and conversational to me during exam, without agitation/combative. He remembered some of the choking event that he experienced at dinner last night. Objective Vital Signs & I&O Last 8 Hrs of Vitals and I&O: Intake & Output 01/21 1600 01/21 0800 01/21 0000 Intake Total 3033 Output Total 1300 Balance 1733 Intake, IV 1813 Intake, Oral 1220 Number 0 Bowel Movements Output, Urine 1300 Exam General Appearance: no apparent distress, alert, awake Head: ecchymosis, lacerations, stable healing laceration/abrasion and ecchymosis around right eye, eyesight grossly Respiratory: chest non-tender, no respiratory distress, decreased breath sounds Cardiovascular: regular rate/rhythm Gastrointestinal: soft, non-tender, decreased bowel sound Extremities: normal inspection, normal capillary refill, normal range of motion, no edema Current Medications: Current Medications Sig/Lorena Start time Last Medication Dose Route Stop Time Status Admin Acetaminophen 1,000 MG Q6P PRN 01/19 0130 01/20 N/A 1 UNIT IV 2256 Albuterol Sulfate 2 PUF Q4-6 PRN PRN 01/19 0215 AC INH Ampicillin Sodium/ 3,000 MG Q6 01/19 0130 01/21 Sulbactam Sodium IV 0524 Sodium Chloride 100 ML Enoxaparin Sodium 40 MG DAILY 01/19 0900 AC 01/20 SC 0911 Erythromycin 1 BUBBA 4 TIMES/DAY 01/20 1300 AC 01/20 OPH 2256 Lorazepam 50 MG Q10H 01/20 1300 AC 01/21 Sodium Chloride 500 ML IV 0415 Lorazepam 50 MG Q10H 01/19 1600 MS 01/20 Dextrose/Water 500 ML IV 01/20 1259 0208 Lorazepam 1 MG Q1 NEEDED PRN 01/19 0230 01/19 IV 0915 Metoprolol Tartrate 25 MG ONCE ONE 01/20 1845 DC PO 01/20 1846 Pantoprazole Sodium 40 MG DAILY 01/19 0615 AC 01/20 IV 0909 Potassium Chloride 10 MEQ Q1H 01/21 0600 DC 01/21 IV 01/21 0701 0750 Sodium Chloride 1,000 ML Q6H 01/19 1045 01/21 IV 0415 Impression/Plan Impression/Problem List Impression: 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 On admission T-max 102.2 trended down to 100.1 latest vital, remain tachycardia in 100s, saturating 90% on 2 L nasal cannula, Labs: Leukocytosis 23.7, H&H stable, PLT 246, lactic acidosis 8.1 trending down to 3.7, negative troponins 2, elevated prolactin 20.4 U tox positive for methadone, and cannabis, UA mostly negative for infection CXF: WBC 3, RBC 1, glucose 84, LDH 113, Total protein 55. CXR: no acute process. CT head: no acute pathology. EKG: sinus tachycardia, Qtc 463. A/P/hospital course #Agitation was altered mental status: Likely is psychotic etiology, toxic/ metabolic encephalopathy as well. Very unlikely to be meningitis based on CSF studies #Pending rule out drug overdose #Fever of unknown origin, with SIRS (leukocytosis, tachycardia, fever) #Lactic acidosis with osmolar gap, resolved #Elevated CK secondary to mild rhabdomyolysis, however no rigidity #PMH of asthma, hypertension, PTSD VS: SR VSS, SAS 3 stable In/Out: 7530/2875, retaining fluid ? Sedation: Ativan drip decreased to 4.5mg/hr. Continue 2-point upper soft restraints [id number]: NGSF Respiratory: likely projectional. Will repeat as needed. No focal consolidation/effusion/ pneumothorax per radiology. Infection: -low suspicious for preorbital/orbital cellulitis based on PE, would recheck twice daily based patient's mental status improves. May consider opthmology consult if needed. Cardio: intake at this point. without any stent placement/infarction event/CABG/CHF to her knowledge. sinuses of valsalva (root). Moderately dilated proximal ascending aorta (tube). NO signs of vegetation. -Per patient's girlfriend, he was not compliant of metoprolol tab 50mg qd at home for HTN. Patient had 180/100 BP on 01/20 and 25mg PO x 1 was given. Again this AM 170/100, since patient is NPO pending swallow eval, Metoprolol 2.5mg IV x 1 was given. - Will continue monitor, pending restart of HTN meds. Hem: Metabolism: on latest lab. Per patient's girlfriend, patient was never alcoholic and had not been using alcohol in daily life. -update from [facility]: last visit on 01/18/2018 and medicated 100mg at 6AM, no take-home bottles and dependes on daily visit, being compliant to daily visit. Based nursing record, patient was at his baseline mental status. No active tapering plan. Alimentary: will again kept n.p.o.with continuous IVF - pending swallow eval. Neuro: continue monitor DVT prophylaxis: Pharm PPX + ALPS N.p.o. Full Code Problem List: 1. Methadone dependence 2. Forehead laceration 3. Asthma Pain Ratin Tomorrow's Labs & Rationales: ICU/CBC Plan DVT/Prophylaxis: mechanical, pharmacological
[2018-01-21 08:00] VITALS: BP 150/100
[2018-01-21 16:00] VITALS: BP 150/98
[2018-01-22] VITALS: BP 154/102
[2018-01-22 04:27] LABS: ABSOLUTE BASOPHIL COUNT 0 /CUMM (0.0-0.2); ABSOLUTE EOSINOPHIL COUNT 0.2 /CUMM (0.0-0.7); ABSOLUTE GRANULOCYTE CT 4.7 /CUMM (1.4-6.5); ABSOLUTE LYMPH COUNT 2.2 /CUMM (1.2-3.4); ABSOLUTE MONOCYTE COUNT 0.6 /CUMM (0.10-0.60); BASOPHIL % 0.2 % (0.0-2.0); EOSINOPHIL % 2.2 % (0-5); GRANULOCYTE % 61.2 % (42.2-75.2); HEMATOCRIT 34.3 % (42-52); MEAN CORPUSCULAR HGB 27.5 PG (27.0-31.0); MEAN CORPUSCULAR HGB CONC 32.9 G/DL (33.0-37.0); MEAN CORPUSCULAR VOLUME 83.7 FL (80.0-94.0); MEAN PLATELET VOLUME 7.5 FL (7.4-10.4); PLATELET COUNT 184 /CUMM (130-400); RBC DISTRIBUTION WIDTH 14.2 % (11.5-14.5); WHITE BLOOD CELL COUNT 7.7 /CUMM (4.8-10.8)
[2018-01-22 08:00] VITALS: BP 170/100
--- NOTE | 2018-01-22 08:03 | PN- Resident CRCU ---
Subjective HPI/CRCU Issues: Review the patient lying comfortably on the bed he has no new complaints the patient is calm and cooperative. Patient said that he has been very stressed lately because 1 of his closest causing was [place] and that is making him sad because he became more cooperative as to catch the bad people but it seems so far he has failed. Patient is on pured diet which is not a fun of but has been taking his meals without any problems. 24 Hour Events: Laboratory Tests 01/22 0414 Chemistry Sodium (137 - 145 mmol/L) 140 Potassium (3.5 - 5.1 mmol/L) 3.5 Chloride (98 - 107 mmol/L) 104 Carbon Dioxide (22 - 30 mmol/L) 28 Anion Gap (5 - 16) 8 BUN (9 - 20 mg/dL) 7 L Creatinine (0.7 - 1.2 mg/dL) 0.7 Estimated GFR (>60 ml/min) > 60 Glucose (65 - 99 mg/dL) 95 Calcium (8.4 - 10.2 mg/dL) 8.4 Phosphorus (2.5 - 4.5 mg/dL) 3.5 Magnesium (1.6 - 2.3 mg/dL) 1.6 Total Bilirubin (0.2 - 1.3 mg/dL) 0.6 AST (17 - 59 U/L) 119 H ALT (21 - 72 U/L) 83 H Albumin (3.5 - 5.0 g/dL) 3.0 L Hematology CBC w Diff NO MAN DIFF REQ WBC (4.8 - 10.8 /CUMM) 7.7 RBC (4.70 - 6.10 /CUMM) 4.10 L Hgb (14.0 - 18.0 G/DL) 11.3 L Hct (42 - 52 %) 34.3 L MCV (80.0 - 94.0 FL) 83.7 MCH (27.0 - 31.0 PG) 27.5 MCHC (33.0 - 37.0 G/DL) 32.9 L RDW (11.5 - 14.5 %) 14.2 Plt Count (130 - 400 /CUMM) 184 MPV (7.4 - 10.4 FL) 7.5 Gran % (42.2 - 75.2 %) 61.2 Lymphocytes % (20.5 - 51.1 %) 28.7 Monocytes % (1.7 - 9.3 %) 7.7 Eosinophils % (0 - 5 %) 2.2 Basophils % (0.0 - 2.0 %) 0.2 Absolute Granulocytes (1.4 - 6.5 /CUMM) 4.7 Absolute Lymphocytes (1.2 - 3.4 /CUMM) 2.2 Absolute Monocytes (0.10 - 0.60 /CUMM) 0.6 Absolute Eosinophils (0.0 - 0.7 /CUMM) 0.2 Absolute Basophils (0.0 - 0.2 /CUMM) 0 Vital Signs Date Time Temp Pulse Resp B/P B/P Pulse O2 O2 Flow FiO2 Mean Ox Delivery Rate / 0400 95 Room Air 06/09 0000 99.1 78 18 154/102 97 Room Air 06/09 0000 97 Room Air 06/08 2058 80 152/95 06/08 2000 99 Room Air 06/08 1717 170/110 06/08 1600 95 Room Air 06/08 1600 98.4 82 18 150/98 96 Room Air 06/08 1525 180/99 06/08 1200 95 Room Air 06/08 1048 180/110 Intake & Output / 1600 06/09 0800 06/09 0000 Intake Total 848 1619 Output Total 1500 1900 Balance -652 -281 Intake, IV 698 1419 Intake, Oral 150 200 Number 0 0 Bowel Movements Output, Urine 1500 1900 Objective Vital Signs & I&O Last 8 Hrs of Vitals and I&O: Vital Signs Result Date Time Pulse Ox 95 /09 0400 O2 Delivery Room Air 06/09 0400 B/P 154/102 /09 0000 Temp 99.1 06/09 0000 Pulse 78 06/09 0000 Resp 18 06/09 0000 O2 Flow Rate 2.0L 06/07 1600 Intake & Output 06/09 0000 06/08 1600 06/08 0800 Intake Total 1619 1045 Output Total 1900 2800 Balance -281 -1755 Intake, IV 1419 1045 Intake, Oral 200 0 Number 0 Bowel Movements Output, Urine 1900 2800 Patient 223 lb Weight Exam General Appearance: well developed/nourished, no apparent distress, alert, awake , comfortable Head: ecchymosis, lacerations, raccoon eyes Ears, Nose, Throat: hearing grossly normal Neck: normal inspection, supple Respiratory: normal breath sounds, chest non-tender, no respiratory distress, lungs clear Cardiovascular: regular rate/rhythm, normal peripheral pulses Gastrointestinal: normal bowel sounds, soft, non-tender Extremities: normal inspection, normal capillary refill Cranial Nerves: normal hearing, Patient has abnormal voice, hard to hear words pronounciations Skin: normal color, warm/dry Skin Temp/Moisture Exam: Warm/Dry Sepsis Skin Exam (color): Normal for Ethnicity Sepsis Peripheral Pulse Location: Dorsalis Pedis Sepsis Peripheral Pulse Exam: Normal Bos[place] Still Needed? Yes Current Medications: Current Medications Sig/Lorena Start time Last Medication Dose Route Stop Time Status Admin Acetaminophen 1,000 MG Q6P PRN 01/19 0130 01/20 N/A 1 UNIT IV 2256 Albuterol Sulfate 2 PUF Q4-6 PRN PRN 01/19 0215 AC INH Ampicillin Sodium/ 3,000 MG Q6 01/19 0130 AC 01/22 Sulbactam Sodium IV 0555 Sodium Chloride 100 ML Benzocaine 1 BUBBA Q8 PRN 01/22 0702 AC 01/22 TOP 0817 Benzocaine 1 BUBBA Q6 01/21 2359 DC TOP Benzocaine 1 BUBBA Q8 / 2200 DC 01/21 TOP 2128 Chlorhexidine 30 ML Q8P PRN 01/21 2115 AC 01/22 Gluconate PO 0556 Enoxaparin Sodium 40 MG DAILY 01/19 0900 AC 01/22 SC 0816 Erythromycin 1 BUBBA 4 TIMES/DAY 01/20 1300 AC 01/22 OPH 0816 Hydrochlorothiazide 25 MG DAILY 01/22 900 AC PO Lorazepam 2 MG Q6 01/21 1800 AC 01/22 PO 0555 Lorazepam 50 MG Q14H 01/21 1100 DC 01/21 Sodium Chloride 500 ML IV 1045 Lorazepam 50 MG Q10H 01/20 1300 DC 01/21 Sodium Chloride 500 ML IV 01/21 1059 0415 Lorazepam 1 MG Q1 NEEDED PRN 01/19 0230 AC 01/19 IV 0915 Losartan Potassium 100 MG DAILY 01/22 900 AC PO Metoprolol Succinate 50 MG DAILY 01/22 900 AC PO Metoprolol Tartrate 25 MG BID 01/21 2100 DC 01/21 PO 2058 Metoprolol Tartrate 5 MG .STK-MED ONE 01/21 182 DC IV 01/21 1823 Metoprolol Tartrate 5 MG Q8 01/21 1530 DC 01/21 IV 1525 Metoprolol Tartrate 2.5 MG ONCE ONE 01/21 1100 DC / IV 01/21 1101 1048 Pantoprazole Sodium 40 MG DAILY 01/19 0615 AC 01/22 IV 0816 Potassium Chloride 10 MEQ .STK-MED ONE 01/21 1822 DC IV 01/21 1823 Sodium Chloride 1,000 ML Q10H 01/21 0915 AC 01/22 IV 0029 Sodium Chloride 1,000 ML Q6H 01/19 1045 DC / IV 0415 Impression/Plan Impression/Problem List Impression: 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 He was combative and belligerent requiring multiple sedating medications put on four-point restraints and full- time sitter. Problem list Agitation was altered mental status: Likely is psychotic etiology, toxic/ metabolic encephalopathy as well. Fever most likely aspiration pneumonia with SIRS (leukocytosis, tachycardia, fever) Lactic acidosis with osmolar gap, resolved Elevated CK secondary to mild rhabdomyolysis, however no rigidity PMH of asthma, hypertension, PTSD VS: SR VSS, SAS 3 stable In/Out: 3512/6200 Agitation: Patient off ativan drip and restraints, rested with just a seater [id number]: NGSF Respiratory: Patient on IV Unasyn day 3 for possible aspiration pneumonia, have been afebrile for 2 days. We can change to oral meds from tomorrow Maintaining saturation on room air likely projectional. Will repeat as needed. No focal consolidation/effusion/ pneumothorax per radiology. Infection: HSV CSF pending, Cultures no growth Low suspicious for preorbital/orbital cellulitis based on PE, would recheck twice daily based patient's mental status improves. May consider opthmology consult if needed. Cardio: Patient has remained hypotensive throughout the course of the stay with diastolic consistently above 100. This patient takes the medication at home omersartan 40 mg, hydrochlorothiazide 25 mg and metoprolol 50 mg XL. I'm restarting all his home medications. Echo grossly normal with some Moderate aortic dilatation. Continue to monitor blood pressure Hem: Hgb has stabilized at 11.3. Metabolism: Unremarkable except in its elevation of AST, however trending down now to 119 on latest lab. Per patient's girlfriend, patient was never alcoholic and had not been using alcohol in daily life. Slightly low albumin 3.0 Potassium was borderline low at 3.5 will give oral supplements as potassium chloride powder for the MEQ Alimentary: Patient passed swallow evaluation for pured diet. She does not like the consistency has been taking very low food however is drinking enough. Neuro: continue monitor DVT prophylaxis: Pharm PPX + ALPS Full Code Problem List: 1. Asthma 2. Methadone dependence 3. Forehead laceration 4. Altered mental status Pain Ratin Tomorrow's Labs & Rationales: ICU bundle Plan DVT/Prophylaxis: mechanical, pharmacological
--- NOTE | 2018-01-22 10:30 | PN- Pulmonary ---
Subjective HPI/Critical Care Issues: Patient is awake alert conversant Objective Current Medications: Current Medications Sig/Lorena Start time Last Medication Dose Route Stop Time Status Admin Acetaminophen 1,000 MG Q6P PRN 01/19 0130 01/20 N/A 1 UNIT IV 2256 Albuterol Sulfate 2 PUF Q4-6 PRN PRN 01/19 0215 INH Ampicillin Sodium/ 3,000 MG Q6 01/19 0130 01/22 Sulbactam Sodium IV 0555 Sodium Chloride 100 ML Benzocaine 1 BUBBA Q8 PRN 01/22 0702 01/22 TOP 0817 Benzocaine 1 BUBBA Q6 01/21 2359 DC TOP Benzocaine 1 BUBBA Q8 01/21 2200 DC 01/21 TOP 2128 Chlorhexidine 30 ML Q8P PRN 01/21 2115 01/22 Gluconate PO 0556 Enoxaparin Sodium 40 MG DAILY 01/19 09 AC 01/22 SC 0816 Erythromycin 1 BUBBA 4 TIMES/DAY 01/20 1300 AC 01/22 OPH 0816 Hydrochlorothiazide 25 MG DAILY 01/22 900 AC 01/22 PO 0924 Lorazepam 2 MG Q6 01/21 1800 AC 01/22 PO 0555 Lorazepam 50 MG Q14H 01/21 1100 DC 01/21 Sodium Chloride 500 ML IV 1045 Lorazepam 50 MG Q10H 01/20 1300 DC 01/21 Sodium Chloride 500 ML IV 01/21 1059 0415 Lorazepam 1 MG Q1 NEEDED PRN 01/19 0230 AC 01/19 IV 0915 Losartan Potassium 100 MG DAILY 01/22 900 AC 01/22 PO 0925 Metoprolol Succinate 50 MG DAILY 01/22 900 01/22 PO 0924 Metoprolol Tartrate 25 MG BID 01/21 2100 DC 01/21 PO 2058 Metoprolol Tartrate 5 MG .STK-MED ONE 01/21 1822 DC IV 01/21 1823 Metoprolol Tartrate 5 MG Q8 01/21 1530 DC 01/21 IV 1525 Metoprolol Tartrate 2.5 MG ONCE ONE 01/21 1100 DC 01/21 IV 01/21 1101 1048 Pantoprazole Sodium 40 MG DAILY 01/19 0615 AC 01/22 IV 0816 Potassium Chloride 40 MEQ ONCE ONE 01/22 0945 DC 01/22 PO 01/22 0946 1023 Potassium Chloride 10 MEQ .STK-MED ONE 01/21 1822 DC IV 01/21 1823 Sodium Chloride 1,000 ML Q10H 01/21 0915 DC 01/22 IV 0029 Vital Signs & I&O Last 24 Hrs of Vitals and I&O: Vital Signs Date Time Temp Pulse Resp B/P B/P Pulse O2 O2 Flow FiO2 Mean Ox Delivery Rate 01/22 0925 97 165/110 01/22 0924 96 165/110 01/22 0800 98.5 88 18 170/100 96 Room Air 01/22 0400 95 Room Air / 0000 99.1 78 18 154/102 97 Room Air 01/22 0000 97 Room Air / 2058 80 152/95 / 2000 99 Room Air / 1717 170/110 /08 1600 95 Room Air / 1600 98.4 82 18 150/98 96 Room Air / 1525 180/99 / 1200 95 Room Air /08 1048 180/110 Intake & Output 01/22 1600 01/22 0800 01/22 0000 Intake Total 848 1619 Output Total 1500 1900 Balance -652 -281 Intake, IV 698 1419 Intake, Oral 150 200 Number 0 0 Bowel Movements Output, Urine 1500 1900 Room air oxygen saturation 95% exam of his chest shows rare rhonchi cardiac exam shows regular S1 and S2 without murmurs abdomen is soft nontender Impression/Plan Impression/Plan Impression/Plan: 42-year-old with presumed aspiration pneumonia and improving delirium Recommendations: Continue antibiotics. Pulmonary toilet. IV fluids can be decreased patient remains hemodynamically stable can be transferred to general medical service
[2018-01-22 16:00] VITALS: BP 150/100
[2018-01-22 19:05] VITALS: BP 180/110
[2018-01-23] VITALS (11 sets, daily range): BP systolic 150–164; BP diastolic 96–112
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
--- NOTE | 2018-01-23 13:08 | PN- Att Addend ---
Attending Addendum Attending Brief Note 42M PMH hypertension, asthma, anxiety/depression/PTSD, opiate dependence on methadone brought in initially by police for agitation, course complicated by aspiration pneumonia. Patient is still weak and mildly confused but improved over course. Treated with Unasyn, afebrile, stable vitals. Will continue Augmentin, psychiatry consult, can restart Methadone if mental status improves.
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
[2018-01-24 06:16] VITALS: BP 124/88
[2018-01-24 07:54] LABS: ABSOLUTE BASOPHIL COUNT 0 /CUMM (0.0-0.2); ABSOLUTE EOSINOPHIL COUNT 0.5 /CUMM (0.0-0.7); ABSOLUTE GRANULOCYTE CT 6.7 /CUMM (1.4-6.5); ABSOLUTE LYMPH COUNT 1.8 /CUMM (1.2-3.4); ABSOLUTE MONOCYTE COUNT 0.7 /CUMM (0.10-0.60); BASOPHIL % 0.2 % (0.0-2.0); EOSINOPHIL % 5.1 % (0-5); GRANULOCYTE % 68.7 % (42.2-75.2); MEAN CORPUSCULAR HGB 27.3 PG (27.0-31.0); MEAN CORPUSCULAR HGB CONC 32.8 G/DL (33.0-37.0); MEAN CORPUSCULAR VOLUME 83.3 FL (80.0-94.0); MEAN PLATELET VOLUME 8.5 FL (7.4-10.4); PLATELET COUNT 214 /CUMM (130-400); RBC DISTRIBUTION WIDTH 14.6 % (11.5-14.5); RED BLOOD CELL CT 4.91 /CUMM (4.70-6.10); WHITE BLOOD CELL COUNT 9.7 /CUMM (4.8-10.8)
[2018-01-24 08:00] VITALS: BP 130/98
[2018-01-24 08:18] LABS: HEMATOCRIT 40.9 % (42-52)
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
[2018-01-24 14:21] VITALS: BP 132/80
[2018-01-24 23:03] VITALS: BP 139/103
[2018-01-25 05:46] VITALS: BP 110/68
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
[2018-01-25 17:30] VITALS: BP 100/52
[2018-01-25 21:30] VITALS: BP 130/98
--- NOTE | 2018-01-25 21:51 | Event Note ---
Event Note Event Note: I was called to inform that patient wanted to leave AMA. Patient felt that he does not have any medical problems and he is unnecessarily held in hospital. Patient was seen by psychiatrist on who suggested that patient cannot leave AMA as he is not thinking clearly and not competent to make medical decisions. He was not seen by a psychiatrist on as follow-up so I was involved in the care to decide regarding leaving AMA. I had at least 20-30 minutes conversation with patient. Reasons to go home, stories around it were changing quite a bit. Initially he mentioned that it was his daughter's birthday on Wednesday which he missed. Then he said that it was his son's birthday and not daughter's birthday. Then he mentioned that his 10 year long girlfriend broke up with him today because she does not believe in him. She has to take care their daughter's all of herself and she is driving daily to [place] to keep daughters (23 yr and 15 yr) with their grandmother. He wanted to go home to take of his daughters. He was oriented in Place, to some extent in person but not in time. He said it was 2019. He could not recall President before Trump. He has 1/3 thing recall. Speech was pressured and patient was very argumentative and insistent to go home. At this point given his confusion, poor recall, lack of judgment, it would not be safe for discharge and patient cannot leave AMA until seen and reevaluated by psychiatrist. When I told him this decision, he started more arguments, told me that he is going to record all the conversation and gait reveals and have a legal suit. Then he agreed to stay in hospital until tomorrow morning and was insistent that he should be seen earliest in the morning. I also called Dr. Hong transportation engineer psychiatrist who agreed with the plan and suggested that PEC is not required at this time as Psych admission is not expected.
[2018-01-26 07:00] VITALS: BP 130/98
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
[2018-01-26 08:00] VITALS: BP 130/98
[2018-01-26 10:00] VITALS: BP 118/62
--- NOTE | 2018-01-26 11:03 | Incdntl Nt Psy ---
Incidental Note Notation: Re: confusion. Spoke with Dr. Lindsey and nursing. I realized this pt is someone I once knew and I do not want to further invade his privacy. Briefly, unclear cause of original presentation with agitation and altered mental status but more recently I suspect his confusion is iatrogenic (ativan drip in ICU and then taper + antipsychotics in a most likely AP naive person) He should not leave if his mentation is still impaired. Directions for sedation on my previous note but so far he has been redirectable. Psych to follow up for capacity tomorrow. He is otherwise medically cleared. JScruggsMD #[id number]
--- NOTE | 2018-01-26 11:44 | PN- Psychiatry ---
Assessment/Plan Impression: Follow up on this 42 yo man re possible discharge.Pt was admitted with AMS of unknowm etriology. As his admisison progressed his agitaiton was treated with lorazepam and haloperisol with resultant increase in confusion. Today pt seen in his room in presence of sitter per his request. ALert and oriented x 3. Initially a little irritable. Black eye, several bruises. Eye contact good.Speech martín rate, rhythm. The patient described his mood as "agitated because I want to get out of here". His affect was mood congruent. He was not suicidal or homicidal. Thought process was normal in tempo, stream and form with no delusions or obsessions. Attention and concentration were good. There was no perceptual abnormality. Impulse control is fair. Intelligence level is average, fund of knowledge average, use of language appropriate. Patient's insight is limited, he tends to minimize events prior to admission. The patient has a psychiatric history of depression but is not being treated for several years. Mood prior to admission was good. He has no history of symptoms suggestive of a bipolar disorder. He is on methadone for opiate dependence. He has been medically cleared. Head CT was normal. The patient has no acute psychiatric illnesS at this time. The precipitating event for presentation is unclear. Suggestion: From a psychiatric point of view the patient may be discharged. He should follow-up with his primary care doctor with a low threshold for psychiatric referral. Subjective Subjective: "I feel fine I just want to go home".
[2018-01-26 14:01] VITALS: BP 138/98
--- NOTE | 2018-01-26 14:37 | Patient Discharge Instructions ---
Discharge Instructions General Discharge Information Special Instructions: PLEASE FOLLOW UP WITH pcp WITHIN 7 DAYS OF DISCHARGE. PATIENT IS LEAVING AGAINST MEDICAL ADVICE. Acute Coronary Syndrome Inclusion Criteria At DC or during hospital stay patient has or had the following: ACS DIAGNOSIS No Discharge Core Measures Meds if any: Prescribed or Continued at Discharge JAIR/ARB if EF <40% No Meds if any: NOT Prescribed or Continued at Discharge Congestive Heart Failure Inclusion Criteria At DC or during hospital stay patient has or had the following: CHF DIAGNOSIS No Discharge Core Measures Meds if any: Prescribed or Continued at Discharge Meds if any: NOT Prescribed or Continued at Discharge Cerebrovascular accident Inclusion Criteria At DC or during hospital stay patient has or had the following: CVA/TIA Diagnosis No Discharge Core Measures Meds if any: Prescribed or Continued at Discharge Meds if any: NOT Prescribed or Continued at Discharge Venous thromboembolism Inclusion Criteria VTE Diagnosis No VTE Type NONE VTE Confirmed by (Test) NONE Discharge Core Measures - Per Current guidelines, there needs to be overlap - treatment for the first 5 days of Warfarin therapy. - If discharged on Warfarin prior to 5 days of - overlap therapy, the patient will need to be - assessed for post discharge needs including - *Post discharge parental anticoagulation - *Warfarin and/or parental anticoagulation education - *Follow up date to check INR post discharge At least 5 days overlap therapy as Inpatient No Meds if any: Prescribed or Continued at Discharge Note: Overlap Therapy is Warfarin and Anticoagulant Meds if any: NOT Prescribed or Continued at Discharge
--- NOTE | 2018-01-26 15:03 | Event Note ---
Event Note Event Note: Around 2.15 pm, I was informed by the nursing staff and the digital marketing intern that the patient wants to leave. I went in and spoke with the patient, explaining to him that he is due for ativan po dose tomorrow for his ativan taper. Patient showed an understanding that this could cause harm to his health if he leaves today however he was adamant about leaving AMA. At that time, Dr. Llamas was made aware and I got an AMA form signed by the patient. The patient is now being discharged AMA.
== END 2018-01-26 15:10 | disposition left against medical advice (07) | DRG 178 ==
LOC: ERH 16:49 → ERHI 01-19 00:14 → 2NB 01-19 00:14 → CRI 01-19 00:14 → EDBEDREQ 01-19 01:11 → ENRESERV 01-19 01:58 → CRI 01-19 03:06 → ENTRNSPT 01-22 18:35 → 2NB 01-22 19:09 → EDTRNSPT 01-22 19:12 → EDTRNSPTSTS 01-22 19:12 → CMPTRNSPT 01-22 19:26 → 2NB 01-26 15:10
PROVIDERS: Emergency Medicine; Internal Medicine Critical Care Medicine; Internal Medicine Interventional Cardiology; Preventive Medicine Public Health & General Preventive Medicine
DX: J69.0 Pneumonitis due to inhalation of food and vomit (principal); E87.2 Acidosis; F10.239 Alcohol dependence with withdrawal, unspecified; Z53.21 Procedure and treatment not carried out due to patient leaving prior to being seen by health care provider; F41.9 Anxiety disorder, unspecified; F32.9 Major depressive disorder, single episode, unspecified; F43.10 Post-traumatic stress disorder, unspecified; J45.909 Unspecified asthma, uncomplicated; Y90.0 Blood alcohol level of less than 20 mg/100 ml; R45.1 Restlessness and agitation; F11.99 Opioid use, unspecified with unspecified opioid-induced disorder; Z79.51 Long term (current) use of inhaled steroids; F12.90 Cannabis use, unspecified, uncomplicated; S01.81XA Laceration without foreign body of other part of head, initial encounter
CPT/HCPCS: 2NBP; 87070; 87205; 87529; CCU; 36415; 36592; 71045; 80307; 81001; 82436; 87040; 87071; 87086; 87389; 93005; 93010; 93306; 96372; 96374; 97110-GO; 97116-GO; 97162-GP; 97530-GO; 99291; G0480; J0131; J0696; J1200; J1630; J1650; J2060; J2930; J3490; J7040